=== PATIENT | female | born 1945 | race Caucasian/White ===

== ENCOUNTER → 2019-06-20 13:22 | Outpatient (CLI) | payer MEDICARE, SELFPAY ==
--- NOTE | ~2019-06-20 | MR_ITS ---
EXAMINATION: MR lumbar spine wo/w con EXAM DATE: 06/20/2019 14:58 INDICATION: Low back pain, right leg pain. Lumbar radiculopathy. TECHNIQUE: Multi-sequential, multiplanar MR images of the lumbar spine were obtained without contrast . Sagittal T1, T2, T2 fat saturation images. Axial T2 weighted images. Axial T1 weighted sequence. Patient was then injected with 10 mL Multihance intravenous contrast and reimaged. Postcontrast axi al and sagittal T1-weighted fat saturation sequences were obtained. Comparison is made to prior exami nation from 05/02/2015. FINDINGS: There is been interval posterior and interbody fusion L4-5. The vertebral bodies are aligne d in the AP dimension. Mild disc disease L2-3 and L3-4. The conus medullaris terminates at the L1/2 l evel and has normal signal intensity and morphology. There are no suspicious marrow signal abnormali ties. There are no areas of abnormal enhancement on the post contrast images. There is severe right r enal atrophy and hypertrophied appearing left kidney again noted. Level by level evaluation: T12-L1: Disc does not extend beyond the endplate margin. Facet arthropathy: Minimal. Neural foraminal stenosis: No stenosis. Central canal stenosis: No stenosis. L1-L2: Disc does not extend beyond the endplate margin. Facet arthropathy: Mild. Neural foraminal stenosis: No stenosis. Central canal stenosis: No stenosis. L2-L3: There is a mild diffuse disc bulge. Facet arthropathy: Mild. Neural foraminal stenosis: Mild bilateral. Central canal stenosis: No stenosis. L3-L4: There is a mild to moderate diffuse disc bulge. Facet arthropathy: Moderate left, mild to moderate right. Ligamentum flavum enlargement . Neural foraminal stenosis: Mild. Central canal stenosis: No stenosis. L4-L5: This level is fused. Facet arthropathy: None. Neural foraminal stenosis: Moderate right, mild to moderate left. Central canal stenosis: No stenosis. L5-S1: Disc does not extend beyond the endplate margin. Facet arthropathy: Mild. Neural foraminal stenosis: No stenosis. Central canal stenosis: No stenosis. IMPRESSION: 1. Interval L4-5 lumbar fusion. 2. Mild progression lumbar spondylosis compared to 2016. Reviewed, dictated and finalized at location B. 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
[2019-06-20 14:29] LABS: Blood Urea Nitrogen 14 mg/dL (8-26); Estimated Glomerular Filt Rate > 60
== END ==
PROVIDERS: PCP Physician Assistant; Visit Provider Anesthesiology
DX: M47.26 Other spondylosis with radiculopathy, lumbar region (principal)
CPT/HCPCS: 72158; A9577

== ENCOUNTER 2020-02-06 09:37 | Outpatient (CLI) | payer MEDICARE, SELFPAY ==
--- NOTE | ~2020-02-06 | MM_ITS ---
EXAMINATION: MM screening ramiro BI w kailee HISTORY: Screening TECHNIQUE: Craniocaudal and mediolateral oblique 3-D tomosynthesis images were obtained and synthetic 2-D images were generated. CAD analysis was submitted and interpreted. COMPARISON: Comparison to multiple prior studies sequentially, with oldest reviewed study dated 07/2017. BREAST PARENCHYMAL COMPOSITION: The breasts are heterogeneously dense, which may obscure small masses . FINDINGS: There is no evidence of suspicious mass, calcification, or architectural distortion to sugg est malignancy in either breast. There has been no suspicious interval change. IMPRESSION: 1. No mammographic evidence of malignancy. 2. Recommend routine screening mammography in one year. BI-RADS Category 1: Negative Reviewed, dictated and finalized at location A.
== END 2020-02-06 09:38 | disposition home or self-care (01) ==
PROVIDERS: PCP Physician Assistant; Visit Provider Physician Assistant
DX: Z12.31 Encounter for screening mammogram for malignant neoplasm of breast (principal)
CPT/HCPCS: 77063; 77067

== ENCOUNTER 2021-04-08 09:40 | Outpatient (CLI) | payer MEDICARE, SELFPAY ==
--- NOTE | ~2021-04-08 | MM_ITS ---
EXAMINATION: MM screening ramiro BI w kailee HISTORY: Screening mammogram TECHNIQUE: Craniocaudal and mediolateral oblique 3-D tomosynthesis images were obtained and synthetic 2-D images were generated. CAD analysis was submitted and interpreted. COMPARISON: 02/06/2020 bilateral screening mammogram 01/05/2019 diagnostic right mammogram 07/10/2018 left stereotactic breast biopsy 06/27/2018 bilateral diagnostic mammography BREAST PARENCHYMAL COMPOSITION: The breasts are heterogeneously dense, which may obscure small masses . FINDINGS: Multiple bilateral benign calcifications are again noted. There is no evidence of suspiciou s mass, calcification, or architectural distortion to suggest malignancy in either breast. There has been no suspicious interval change. IMPRESSION: 1. No mammographic evidence of malignancy. 2. Recommend routine screening mammography in one year. BI-RADS Category 2: Benign finding(s). Reviewed, dictated and finalized at location A. ENTER ROUGH
== END 2021-04-08 09:41 | disposition home or self-care (01) ==
LOC: ANHIMG 09:43
PROVIDERS: PCP Physician Assistant; Visit Provider Physician Assistant
DX: Z12.31 Encounter for screening mammogram for malignant neoplasm of breast (principal)
CPT/HCPCS: 77063; 77067

== ENCOUNTER → 2021-11-03 08:09 | Outpatient (CLI) | payer MEDICARE, SELFPAY ==
--- NOTE | ~2021-11-03 | CT_ITS ---
EXAMINATION: CT abdomen wo con DATE: 11/03/2021 08:46 INDICATION: Evaluate for hernia. TECHNIQUE: Computed tomography (CT) of the abdomen and pelvis was performed without intravenous contr ast. The dose-length product was 177.67 mGy-cm. Automated exposure control and iterative reconstructi on technique were employed. COMPARISON: CT dated 08/28/2014. FINDINGS: There is right middle lobe atelectasis. Heart size normal. Small hiatal hernia. No signific ant pleural or pericardial effusion. There is a small fat-containing supraumbilical hernia. Severely atrophic right kidney with hypertrophy of the left kidney. No hydronephrosis. There are gallstones. T he liver, spleen, pancreas, adrenal glands are unremarkable. Nonobstructive bowel gas pattern. There is posterior spinal fusion at the lower lumbar spine. No acute osseous abnormality. There are surgica l changes in the small bowel of the left mid abdomen. IMPRESSION: 1. Small fat-containing supraumbilical ventral hernia. 2: Cholelithiasis. 3: Severe right renal atrophy. Reviewed, dictated and finalized at location A.
== END ==
PROVIDERS: PCP Internal Medicine; Visit Provider Surgery
DX: K43.2 Incisional hernia without obstruction or gangrene (principal); K80.20 Calculus of gallbladder without cholecystitis without obstruction; K42.9 Umbilical hernia without obstruction or gangrene; N26.1 Atrophy of kidney (terminal)
CPT/HCPCS: 74150

== ENCOUNTER 2021-11-19 10:55 | Outpatient (CLI) | payer MEDICARE, SELFPAY ==
--- NOTE | 2021-11-19 10:58 | ECG_ITS ---
Measurements Intervals [place] Rate: 72 P: 64 ME: 138 QRS: 56 QRSD: 74 T: 71 QT: 357 QTc: 391 Interpretive Statements SINUS RHYTHM DELAYED PRECORDIAL R/S TRANSITION BASELINE ARTIFACT- I, II, III, AVR, AVL, AVF, V3-V5 BORDERLINE ECG Electronically Signed On 11-19-2021 12:09:02 CDT by Regulo Reese D.O.
== END 2021-11-19 10:56 | disposition home or self-care (01) ==
PROVIDERS: PCP Physician Assistant; Visit Provider Surgery
DX: K43.2 Incisional hernia without obstruction or gangrene (principal); I10 Essential (primary) hypertension; Z01.818 Encounter for other preprocedural examination; R94.31 Abnormal electrocardiogram [ECG] [EKG]
CPT/HCPCS: 36415; 86850; 86900; 86901; 93005

== ENCOUNTER 2021-11-23 00:27 | Day surgery (SDC) | payer MEDICARE, SELFPAY ==
[2021-11-19 08:47] VITALS: BMI 22.6
--- NOTE | 2021-11-19 09:17 | PC.NURSE ---
Report to the Outpatient Waiting Room, entrance under the green pavilion located off [facility], at time _0600_ on date _11/23/21_. OR Time: _0730_. - You and your visitor will be asked a series of questions to screen for COVID 19 for your protection. - Only one visitor is allowed at this time. - The patient visitor is requested to leave or wait in car when not with patient. - A mask is required within the hospital. Patients may have clear liquids (water, carbonated beverages, clear teas, apple juice) until 3 hours prior to surgery (0430 AM) with a maximum of 20 ounces. - No food from midnight until time of surgery Take the following medications with a SIP of water the morning of surgery: __AMLODIPINE, LEVOTHYROXINE, & ALPRAZOLAM IF NEEDED__ Medications to discontinue per ANESTHESIA - _VITAMINS AND SUPPLEMENTS 3 DAYS PRIOR TO SURGERY, Date to take last dose 06/22/21_ Please no make-up, nail danish, hairspray, perfume, deodorant, or body powder the day of surgery. No jewelry (including any body piercings) or valuables the day of surgery, leave them at home. Please take a shower or bath the night before, or the morning of, surgery with an antibacterial soap. Wear comfortable, loose fitting clothing. - Jewelry must be removed prior to entering the operating room. Rings and piercings that are not removed may be cut off. - The hospital will not accept responsibility for valuables. - Please leave all valuables, including medications, at home the day of surgery. If you are going home after surgery, a licensed minibus driver must drive you home. - NO public transportation without another adult. - We recommend that an adult stay with you for 24 hours following discharge. - We also recommend that you do not drive, make important decision, drink alcoholic beverages, or take any drugs that were not prescribed by your health care provider for at least 24 hours after your discharge time. Follow any additional instructions given to you from your surgeon. HIBICLENS SHOWER AM OF SURGERY If you or anyone in your household have experienced Covid symptoms in the past week, please notify your surgeon or the nurse liaison at the phone number below for possible testing. Telephone instructions given to ____PT and asked if any additional questions and then verbalized understanding. Patient advised to call surgeon office or pre surgery nurse liaison [phone] if any additional questions.
--- NOTE | 2021-11-20 14:29 | WPDANESEPPF ---
Anes - Initial Pre Proc Eval Procedure: Operation Date: 11/23/21 07:30 Proposed Procedures p Laparoscopic Incisional Hernia Repair Times Two, Davinci Assisted, Possible Open - Augustin Gomes DO Date/Time: 11/20/21 14:29 Surgeon: Augustin Gomes DO Pre Op Diagnosis: incisional hernia Patient Data Age: 76 Gender: F Height: 1.5 m Weight: 50.9 kg Allergies Allergy/AdvReac Type Severity Reaction Status Date / Time oxycodone AdvReac Severe Hallucinati Verified 11/23/21 06:15 on amoxicillin AdvReac Intermediate vomiting Verified 11/23/21 06:15 and diarrhea lovastatin AdvReac Unknown Joint Pain Verified 11/23/21 06:15 Sulfa (Sulfonamide AdvReac Unknown N/V Verified 11/23/21 06:15 Antibiotics) Home Medications Medication Instructions Recorded Confirmed Type folic acid 800 mcg tablet 0.8 mg PO DAILY 03/14/19 11/23/21 History glucosamine sulfate 500 mg tablet 1,000 mg PO QAM 03/14/19 11/23/21 History (Glucosamine) magnesium 200 mg tablet 200 mg PO QAM 03/14/19 11/23/21 History aspirin 81 mg tablet,delayed 81 mg PO HS 06/05/19 11/23/21 History release (Adult Low Dose Aspirin) cholecalciferol (vitamin D3) 50 50 mcg PO QAM 06/05/19 11/23/21 History mcg (2,000 unit) capsule alprazolam 0.5 mg tablet 0.5 mg PO TID PRN anxiety #90 tabs 09/30/21 11/19/21 Rx amlodipine 5 mg tablet 5 mg PO QAM 11/19/21 11/23/21 History levothyroxine 75 mcg tablet 75 mcg PO QAM 11/19/21 11/23/21 History potassium chloride 10 mEq 20 meq QAM 11/19/21 11/23/21 History tablet,extended release simvastatin 20 mg tablet 20 mg PO HS 11/19/21 11/23/21 History Patient hx anesthesia problems: none Family hx anesthesia problems: none Results Review: All pre-operative results and documents have been reviewed as part of the pre-operative evaluation. [facility] Past Medical History Medical History Anxiety COPD (chronic obstructive pulmonary disease) Elevated lipids Encounter for fitting and adjustment of pessary Endometriosis HTN (hypertension) Thyroid disease Surgical History Surgical History H/O abdominal hysterectomy H/O bladder repair surgery H/O colonoscopy 2012 H/O of rectopexy History of back surgery History of bilateral tubal ligation History of breast lump/mass excision S/P small bowel resection Family History Family History Mother Family history of arthritis Family history of heart disease in male family member before age 55 Family history of malignant neoplasm Patient's mother is Father Family history of diabetes mellitus in first degree relative Family history of emphysema Patient's father is Diabetes mellitus Grandparent Family history of coronary artery disease Sibling Family history of heart disease in male family member before age 55 Patient's sister is Carcinoma of colon Social History Social History Smoking packs per day: 0.5 Smoking cigarettes per day: 10.0 Years smoked: 40 Smoking pack-years: 20.00 Smoking status: Former smoker Tobacco type: cigarettes Second hand tobacco smoke exposure: No Smoking end date: 04/25/06 Alcohol intake: never Substance use: never Substance use type: does not use Living arrangements: alone Spiritual care concerns: No Anes - Eval Final PreProcedure Day of Procedure 11/20/21 14:29 Patient weight: normal Heart: regular rate and rhythm Lungs: clear to auscultation and normal air movement Airway: Mallampati scale class II Neurological: alert and oriented Last oral intake: >/= 8 hours ASA classification: III Emergent: no Anesthetic plan: proceed Anesthesia type and monitoring: general GIVS Results Review: All pre-operative results and do
[2021-11-23] VITALS (9 sets, daily range): BP systolic 115–179; BP diastolic 53–68; PULSE 79–89; RESP 12–16; TEMP 36.6; O2SAT 94–100
[2021-11-23] MEDS: ACETAMINOPHEN 500 MG TABLET 1000 MG PO (06:42)
[2021-11-23] MEDS: KETOROLAC 15 MG/ML VIAL (*BKC) IV PUSH (06:54)
[2021-11-23] MEDS: LACTATED RINGERS 1,000 ML 30 ML IV CONT ×2 (06:54→10:40)
--- NOTE | 2021-11-23 07:10 | P.HPUP_ITS ---
History and Physical Update Update Date/Time: 11/23/21 07:10 History and Physical has been reviewed, including an updated exam of the patient. There are NO changes in the patient's condition. I reviewed the operative reports and CT and have recommended proceeding with laparoscopic incis ional hernia repair with mesh x2, da Melody assisted. Risks, benefits, and alternatives have been discussed and questions answered. Patient agrees to proceed with procedure.
[2021-11-23] MEDS: ceFAZolin 2 GM/D5W 50 ML 2 GM/50 ML BAG IVPB (07:27)
--- NOTE | 2021-11-23 10:34 | W.PM.PROC2 ---
Procedure Note - Detailed Date of Procedure 11/23/21 Pre-op Diagnosis incisional hernia x2 Post-op Diagnosis Same Procedure Performed Laparoscopic Incisional Hernia Repair with Mesh x2, da Melody assisted Surgeon Augustin Gomes, Anesthesia General and Local (Exparel) Indications This is a 76-year-old woman who presented with 2 separate areas of a bulge and pain related to prior surgeries. She has a history laparoscopic rectopexy for prolapse and subsequently had a small bowel obstruction and required an exploratory laparotomy. She eventually developed a bulge at the superior edge of her midline abdominal scar and also developed a bulge had a right upper quadrant port site. The previous operative reports were reviewed and a CT of her abdomen was obtained. After reviewing the imaging and reports discussions were made with the patient about treatment options and decision was made to proceed with robotic assisted laparoscopic incisional hernia repair with mesh x2, possible open. Findings Laparoscopic repair of the 2 incisional hernias was performed. Upon entering the abdominal cavity laparoscopically, the left lateral abdomen appeared free of adhesions but there were significant adhesions involving omentum to the abdominal wall. These were taken down robotically with curved scissors the fascia was cleared around the upper abdomen where the hernias were. The patient was found to have a hernia in the upper midline measuring about 3 cm x 4 cm. She also had a right upper quadrant hernia measuring about 2 cm x 2 cm. The hernia defects were about 15 cm apart which made repairing this with 1 mesh too difficult. Therefore I chose to repair the right upper quadrant incisional hernia with an [address] mesh, and the upper midline incisional hernia was repaired using a 10 cm x [address] mesh. No specimens were obtained for pathology. As I was taking down the omental adhesions, there were some small bowel adhesions in the right lateral abdomen. There was 1 injury on the surface of the small bowel as I was taking down these adhesions, therefore I oversewed this area with 3-0 Vicryl seromuscular imbricating sutures. Description of Procedure Procedure as well as risks, benefits, and alternatives were discussed with the patient. Written consent was obtained and placed in chart prior to procedure. Patient was brought back to surgical suite. She was placed supine on operating table. Time-out was done to confirm patient and procedure. She was then intubated by the anesthesia department. A bump was placed under her left hip, and the bed was flexed slightly to extend the space between her costal margin and iliac crest. Her abdomen was prepped and draped in sterile fashion using chlorhexidine prep. A 5 millimeter incision was made in the left upper quadrant, and a 5 millimeter Optiview trocar was advanced through the abdominal layers under direct visualization. Once inside the abdominal cavity, carbon dioxide insufflation was used to create a pneumoperitoneum. Her abdomen was inspected. An 8 millimeter incision was made in the left lower quadrant, and an 8 millimeter robotic trocar was placed under direct visualization. Another 8 millimeter incision was made in the left lateral abdomen, and an 8 millimeter robotic trocar was placed under direct visualization. Exparel was infiltrated along the lateral abdominal wilkinson to perform a transversus abdominis plane block bilaterally. The 5 millimeter port was removed, the incision was extended to 12 millimeters, and a 12 millimeter air seal port was placed under direct visualization. A Toney-Sandoval cone was also used to place an 0-Vicryl simple interrupted suture at this trocar site. The robotic arms were brought up to the patient's bedside and secured to the ports. The camera and instruments were inserted, and I then moved over to the robotic console and took control of the camera and instruments.
--- NOTE | 2021-11-23 10:59 | SUR.PHASEI ---
1059- oral airway removed
[2021-11-23] MEDS: ONDANSETRON INJ 4 MG/2 ML VIAL IV PUSH (12:10)
[2021-11-23] MEDS: traMADol HCL (*CRX) 50 MG TABLET PO (12:19)
== END 2021-11-23 13:05 | disposition home or self-care (01) ==
PROVIDERS: PCP Physician Assistant; Visit Provider Surgery
PROC: (CPT 49654; principal; 2021-11-23 07:30)
DX: K43.2 Incisional hernia without obstruction or gangrene (principal); K91.72 Accidental puncture and laceration of a digestive system organ or structure during other procedure; Y65.8 Other specified misadventures during surgical and medical care; F41.9 Anxiety disorder, unspecified; J44.9 Chronic obstructive pulmonary disease, unspecified; N80.9 Endometriosis, unspecified; I10 Essential (primary) hypertension; Z87.891 Personal history of nicotine dependence; Z79.82 Long term (current) use of aspirin; E03.9 Hypothyroidism, unspecified
CPT/HCPCS: 49654; 44238; S2900; A9270; C1781; C9290; J0690; J1100; J1885; J2405; J2704; J3010; J7030; J7120

== ENCOUNTER → 2022-07-07 14:49 | Outpatient (CLI) | payer MEDICARE, SELFPAY ==
--- NOTE | ~2022-07-07 | MM_ITS ---
EXAMINATION: MM screening armiro BI w kailee HISTORY: Screening mammogram TECHNIQUE: Craniocaudal and mediolateral oblique 3-D tomosynthesis images were obtained and synthetic 2-D images were generated. CAD analysis was submitted and interpreted. COMPARISON: 04/10/2021, 02/06/2020 bilateral screening mammogram examinations BREAST PARENCHYMAL COMPOSITION: The breasts are heterogeneously dense, which may obscure small masses . FINDINGS: Multiple bilateral benign calcifications. There is no evidence of suspicious mass, calcific ation, or architectural distortion to suggest malignancy in either breast. There has been no suspicio us interval change. IMPRESSION: 1. No mammographic evidence of malignancy. 2. Recommend routine screening mammography in one year. BI-RADS Category 2: Benign finding(s). Reviewed, dictated and finalized at location A.
== END ==
PROVIDERS: PCP Physician Assistant; Visit Provider Physician Assistant
DX: Z12.31 Encounter for screening mammogram for malignant neoplasm of breast (principal)
CPT/HCPCS: 77063; 77067

== ENCOUNTER 2022-11-09 00:32 | Day surgery (SDC) | payer OTHER, SELFPAY ==
[2022-10-29 13:41] VITALS: BMI 25.1
[2022-11-09 09:32] VITALS: BP 137/68; PULSE 76; RESP 16; TEMP 36.2; O2SAT 97
[2022-11-09] MEDS: LACTATED RINGERS 1,000 ML 150 ML IV CONT (09:49)
--- NOTE | 2022-11-09 09:56 | PM.HPGS ---
History of Present Illness History of Present Illness Consent: Risks, benefits, and alternatives have been discussed and questions answered. Patient agrees to proceed with procedure. Chief complaint: neoplasm screening Narrative: Carolee Fitzpatrick is a 77 year old female Presents for screening colonoscopy. Previous colonoscopy 2011 was performed because of ischemic colitis. Patient has subsequently healed from this her bowel habits have returned to their baseline. Patient reports repair of prolapse 2 years ago. She did require open surgery and a small-bowel resection. She apparently at some point had a bladder repair. She has had several hernia is repaired. Patient states bowel habits are currently back to baseline. She does use milk of magnesia to control constipation. She denies any bleeding. Screening follow-up colonoscopy advised at this time. Family history is noncontributory. Review of Systems Review of Systems: Review of systems noncontributory. [facility] Past Medical History Medical History (Updated 11/09/22 @ 09:57 by Keith Rodriguez MD) Anxiety COPD (chronic obstructive pulmonary disease) Elevated lipids Encounter for fitting and adjustment of pessary Endometriosis HTN (hypertension) Incisional hernia Rectal prolapse Thyroid disease Surgical History Surgical History H/O abdominal hysterectomy H/O bladder repair surgery H/O colonoscopy 2012 H/O of rectopexy History of back surgery History of bilateral tubal ligation History of breast lump/mass excision History of incisional hernia repair s/p f/u incisional hernia repair x2, Da Melody assisted on 11/23. S/P small bowel resection Family History Family History Mother Family history of arthritis Family history of heart disease in male family member before age 55 Family history of malignant neoplasm Patient's mother is Father Family history of diabetes mellitus in first degree relative Family history of emphysema Patient's father is Diabetes mellitus Grandparent Family history of coronary artery disease Sibling Family history of heart disease in male family member before age 55 Patient's sister is Carcinoma of colon Social History Social History Smoking packs per day: 0.5 Smoking cigarettes per day: 10.0 Years smoked: 40 Smoking pack-years: 20.00 Smoking status: Never smoker Tobacco type: cigarettes Second hand tobacco smoke exposure: No Smoking end date: 04/25/06 Alcohol intake: never Substance use: never Substance use type: does not use Lack of Transportation: No Lack of Food: Never True Current Housing: I Have Housing Concerned About Future Housing: No Difficulty Paying Gas/Electric Bills: No Difficulty Paying for Meds: No Currently Unemployed: No Education: High School Diploma/GED Difficulty w/ Childcare or Family Care: No Living arrangements: alone Spiritual care concerns: No Meds Home Medications and Allergies Home Medications Medication Instructions Recorded Confirmed Type folic acid 800 mcg tablet 0.8 mg PO DAILY 03/14/19 10/29/22 History glucosamine sulfate 500 mg tablet 1,000 mg PO QAM 03/14/19 10/29/22 History (Glucosamine) magnesium 200 mg tablet 400 mg PO QAM 03/14/19 10/29/22 History aspirin 81 mg tablet,delayed 81 mg PO HS 06/05/19 10/29/22 History release (Adult Low Dose Aspirin) cholecalciferol (vitamin D3) 50 50 mcg PO QAM 06/05/19 10/29/22 History mcg (2,000 unit) capsule [id number]-bqaublixu-jivudrap 3.5 1 drp EACH EYE Q6H #5 mL 02/12/22 10/29/22 Rx mg/mL-10,000 unit/mL-0.1% eye drops levothyroxine 75 mcg tablet See Rx Instructions .Route 06/23/22 10/29/22 Rx .COMPLEX #90 tabs potassium chloride 10 mEq 20 meq PO QAM #180 tabs 07/21/22 10/29/22
--- NOTE | 2022-11-09 10:26 | WPDANESEPPF ---
Anes - Initial Pre Proc Eval Procedure: Operation Date: 11/09/22 10:30 Proposed Procedures p Screening Colonoscopy - Keith Rodriguez MD Date/Time: 11/09/22 10:26 Surgeon: Keith Rodriguez MD Pre Op Diagnosis: neoplasm screening Patient Data Age: 77 Gender: F Height: 1.47 m Weight: 52.8 kg Last Vital Signs Temp 97.2 F L 11/09/22 09:32 Pulse 76 11/09/22 09:32 Resp 16 11/09/22 09:32 BP 137/68 11/09/22 09:32 Pulse Ox 97 11/09/22 09:32 O2 Del Method Room Air 11/09/22 09:32 Allergies Allergy/AdvReac Type Severity Reaction Status Date / Time oxycodone AdvReac Severe Hallucinati Verified 11/09/22 09:31 on amoxicillin AdvReac Intermediate vomiting Verified 11/09/22 09:31 and diarrhea lovastatin AdvReac Unknown Joint Pain Verified 11/09/22 09:31 Sulfa (Sulfonamide AdvReac Unknown N/V Verified 11/09/22 09:31 Antibiotics) Home Medications Medication Instructions Recorded Confirmed Type folic acid 800 mcg tablet 0.8 mg PO DAILY 03/14/19 10/29/22 History glucosamine sulfate 500 mg tablet 1,000 mg PO QAM 03/14/19 10/29/22 History (Glucosamine) magnesium 200 mg tablet 400 mg PO QAM 03/14/19 10/29/22 History aspirin 81 mg tablet,delayed 81 mg PO HS 06/05/19 10/29/22 History release (Adult Low Dose Aspirin) cholecalciferol (vitamin D3) 50 50 mcg PO QAM 06/05/19 10/29/22 History mcg (2,000 unit) capsule [id number] 3.5 1 drp EACH EYE Q6H #5 mL 02/12/22 10/29/22 Rx mg/mL-10,000 unit/mL-0.1% eye drops levothyroxine 75 mcg tablet See Rx Instructions .Route 06/23/22 10/29/22 Rx .COMPLEX #90 tabs potassium chloride 10 mEq 20 meq PO QAM #180 tabs 07/21/22 10/29/22 Rx tablet,extended release alprazolam 0.5 mg tablet 0.5 mg PO TID PRN anxiety #90 tabs 09/24/22 10/29/22 Rx sodium,potassium,mag sulfates 17.5 See Rx Instructions PO .COMPLEX 10/08/22 Rx gram-3.13 gram-1.6 gram oral soln #354 mL (Suprep Bowel Prep Kit) amlodipine 5 mg tablet See Rx Instructions .Route 10/17/22 10/29/22 Rx .COMPLEX #90 tabs simvastatin 20 mg tablet See Rx Instructions .Route 10/17/22 10/29/22 Rx .COMPLEX #90 tabs Patient hx anesthesia problems: none Family hx anesthesia problems: none Results Review: All pre-operative results and documents have been reviewed as part of the pre-operative evaluation. [facility] Past Medical History Medical History (Updated 11/09/22 @ 09:57 by Keith Rodriguez MD) Anxiety COPD (chronic obstructive pulmonary disease) Elevated lipids Encounter for fitting and adjustment of pessary Endometriosis HTN (hypertension) Incisional hernia Rectal prolapse Thyroid disease Surgical History Surgical History H/O abdominal hysterectomy H/O bladder repair surgery H/O colonoscopy 2012 H/O of rectopexy History of back surgery History of bilateral tubal ligation History of breast lump/mass excision History of incisional hernia repair s/p f/u incisional hernia repair x2, Da Melody assisted on 11/23. S/P small bowel resection Family History Family History Mother Family history of arthritis Family history of heart disease in male family member before age 55 Family history of malignant neoplasm Patient's mother is Father Family history of diabetes mellitus in first degree relative Family history of emphysema Patient's father is Diabetes mellitus Grandparent Family history of coronary artery disease Sibling Family history of heart disease in male family member before age 55 Patient's sister is Carcinoma of colon Social History Social History Smoking packs per day: 0.5 Smoking cigarettes per day: 10.0 Years smoked: 40 Smoking pack-years: 20.00 Smoking status: Never smoker Tobacco type: cigarettes Second hand
[2022-11-09 10:58] VITALS: BP 99/50; PULSE 84; RESP 24; O2SAT 95
[2022-11-09 11:08] VITALS: BP 92/51; PULSE 81; RESP 17; O2SAT 95
[2022-11-09 11:18] VITALS: BP 92/51; PULSE 80; RESP 22; O2SAT 98
== END 2022-11-09 11:52 | disposition home or self-care (01) ==
PROVIDERS: PCP Physician Assistant; Visit Provider Internal Medicine Gastroenterology
PROC: 0DJD8ZZ Inspection of Lower Intestinal Tract, Via Natural or Artificial Opening Endoscopic (ICD-10-PCS; CPT 45378; principal; 2022-11-09 10:30)
DX: Z12.11 Encounter for screening for malignant neoplasm of colon (principal); D12.2 Benign neoplasm of ascending colon; D12.5 Benign neoplasm of sigmoid colon; K57.30 Diverticulosis of large intestine without perforation or abscess without bleeding; Z79.82 Long term (current) use of aspirin; E07.9 Disorder of thyroid, unspecified; I10 Essential (primary) hypertension; Z87.891 Personal history of nicotine dependence; K64.8 Other hemorrhoids
CPT/HCPCS: 45385; 88305; J2704; J7120

== ENCOUNTER 2023-07-27 10:32 | Outpatient (CLI) | payer OTHER, SELFPAY ==
--- NOTE | ~2023-07-27 | MM_ITS ---
EXAMINATION: MM screening ramiro BI w kailee HISTORY: Screening TECHNIQUE: Craniocaudal and mediolateral oblique 3-D tomosynthesis images were obtained and synthetic 2-D images were generated. CAD analysis was submitted and interpreted. COMPARISON: Comparison to multiple prior studies sequentially, with oldest reviewed study dated 03/25. BREAST PARENCHYMAL COMPOSITION: Dense: The breasts are heterogeneously dense, which may obscure small masses FINDINGS: There is no evidence of suspicious mass, calcification, or architectural distortion to sugg est malignancy in either breast. There has been no suspicious interval change. IMPRESSION: 1. No mammographic evidence of malignancy. 2. Recommend routine screening mammography in one year. BI-RADS Category 1: Negative Reviewed, dictated and finalized at location A.
== END 2023-07-27 10:33 ==
LOC: MICIMG 10:33
PROVIDERS: PCP Physician Assistant; Visit Provider Physician Assistant
DX: Z12.31 Encounter for screening mammogram for malignant neoplasm of breast (principal)
CPT/HCPCS: 77063; 77067

== ENCOUNTER 2023-10-13 09:50 | Outpatient (CLI) | payer OTHER, SELFPAY ==
--- NOTE | ~2023-10-13 | XR_ITS ---
EXAMINATION: [id number] DATE: 10/13/2023 10:15 INDICATION: Chest pain TECHNIQUE: PA view of the chest and 3 views of the right ribs were obtained. COMPARISON: None FINDINGS: No rib fractures identified. Couple calcified nodule left upper lung zone consistent with old granulo matous disease. Mild streaky atelectasis at the left lower lung zone. No other airspace opacities, pu lmonary edema, pleural effusion or pneumothorax. Cardiomediastinal silhouette is normal. Atherosclero tic aorta. Tiny likely left breast biopsy marker. Mild lumbar levocurvature with L4-L5 instrumented p osterior spinal fusion with bilateral vertical meliton and pedicle screw fixation. IMPRESSION: 1. No rib fracture. 2. Mild streaky atelectasis in the left lower lung zone. No other acute cardiopulmonary disease. Reviewed, dictated and finalized at location A. IMPRESSION: 1. No rib fracture. 2. Mild streaky atelectasis in the left lower lung zone. No other acute cardiop ulmonary disease.
--- NOTE | ~2023-10-13 | XR_ITS ---
XR abdomen/kub 1V 10/13/2023 10:15 Indication: Epigastric pain Procedure: KUB Comparison: CT dated 11/03/2021 Findings: Bowel gas pattern nonobstructive. Moderate colonic fecal loading. There are surgical fusion changes at L4-5. There are multiple round radiodensities of the abdomen, likely bowel content. There is a surgical anastomosis line in the left midabdomen. Impression: 1: Nonobstructive bowel gas pattern. Reviewed, dictated and finalized at location B. Impression: 1: Nonobstructive bowel gas pattern.
== END 2023-10-13 09:51 | disposition home or self-care (01) ==
LOC: ANHIMG 10:00
PROVIDERS: PCP Nurse Practitioner; Visit Provider Internal Medicine
DX: R10.13 Epigastric pain (principal); R07.89 Other chest pain
CPT/HCPCS: 71101; 74018

== ENCOUNTER 2023-12-05 09:31 | Outpatient (CLI) | payer OTHER, SELFPAY ==
--- NOTE | ~2023-12-05 | XR_ITS ---
EXAMINATION: XR shoulder RT min 2V DATE: 12/05/2023 09:48 INDICATION: Right scapular pain. Fall in September. TECHNIQUE: 4 views of right shoulder were obtained. COMPARISON: None. FINDINGS: Bone alignment is normal. No fracture. There is mild osteoarthritis of acromioclavicular jesus int. Glenohumeral joint is normal. IMPRESSION: 1. Mild osteoarthritis of acromioclavicular joint. Reviewed, dictated and finalized at location A.
== END 2023-12-05 09:32 | disposition home or self-care (01) ==
LOC: ANHIMG 09:32
PROVIDERS: PCP Nurse Practitioner; Visit Provider Internal Medicine
DX: M19.011 Primary osteoarthritis, right shoulder (principal); M25.511 Pain in right shoulder
CPT/HCPCS: 73030

== ENCOUNTER 2023-12-14 11:00 | Observation (INO) | payer OTHER, SELFPAY ==
[2023-12-14] VITALS (11 sets, daily range): BP systolic 100–160; BP diastolic 48–71; PULSE 87–100; RESP 12–29; TEMP 36.7–37.4; O2SAT 95–100; BMI 20.7
--- NOTE | ~2023-12-14 | CT_ITS ---
EXAMINATION: CT abdomen pelvis wo con DATE: 12/14/2023 13:15 INDICATION: Rib pain. Kidney stone. TECHNIQUE: Computed tomography (CT) of the abdomen and pelvis was performed without intravenous contr ast. Automated exposure control and iterative reconstruction technique were employed. The dose-length product was 328.39 mGy-cm. COMPARISON: CT abdomen 11/03/2021 FINDINGS: The visualized portions of the lung bases demonstrates mild atelectasis. There is a 17 mm n odule in left lower lobe, consistent with primary bronchogenic carcinoma. No pleural effusion. The he art size is normal. There are coronary artery calcifications. No pericardial effusion. There is a sma ll sliding hiatal hernia. There is a 12 mm hypodense mass in right hepatic lobe, consistent with meta static disease. There is a 13 mm liver mass adjacent to the falciform ligament that may be focal stea tosis or metastatic disease. The gallbladder, spleen, pancreas, and adrenal glands are normal. There is severe atrophy of right kidney. There is a 10 mm cyst in left kidney. There are no dilated loops o f bowel. There is calcified atherosclerosis of the aorta and many of the other arteries. There are n o pathologically enlarged lymph nodes. There is no free intraperitoneal fluid. There are scattered ly tic lesions of bone including in the proximal femora, left ilium, right ilium, left seventh rib, and sacrum. There are changes of anterior and posterior fusion procedures at L4-L5. There is lytic lesion in T10 with pathologic burst fracture. There is a chronic compression fracture of T9. IMPRESSION: 1. 17 mm left lower lobe pulmonary nodule, consistent with primary bronchogenic carcinoma. 2. Bone lesions and liver mass(es), consistent with metastatic disease. CT-guided biopsy of a lytic l esion of left ilium is recommended. Reviewed, dictated and finalized at location A. IMPRESSION: 1. 17 mm left lower lobe pulmonary nodule, consistent with primary bronchogenic carcinoma. 2. Bone lesions and liver mass(es), consistent with metastatic disease. CT-guid ed biopsy of a lytic lesion of left ilium is recommended.
--- NOTE | ~2023-12-14 | XR_ITS ---
EXAMINATION: XR chest 2V DATE: 12/14/2023 12:43 INDICATION: Weakness. TECHNIQUE: Frontal and lateral views of the chest were obtained. COMPARISON: Chest 2 views 10/13/2023, chest CT 05/02/2015, cervical spine radiographs 07/27/2017 FINDINGS: There is mild atelectasis in the lower lung zones. There is a chronic nodule in right upper lobe, likely benign. Calcified left lung nodules are consistent with old granulomatous disease. No p leural effusion or pneumothorax. The heart is normal. There are changes of posterior fusion procedure in lumbar spine. IMPRESSION: 1. Mild atelectasis in the lower lung zones. Reviewed, dictated and finalized at location A.
--- NOTE | ~2023-12-14 | CT_ITS ---
EXAMINATION: CT biopsy bone superficial DATE: 12/15/2023 08:49 INDICATION: Lytic lesion of left ilium. TECHNIQUE: The procedure including the risks, benefits, and alternatives was discussed with the patie nt. Risks discussed included bleeding and infection. The patient verbalized understanding of the risk s and agreed to proceed. The skin overlying the liver was prepped and draped in usual sterile fashio n. Anesthetic was administered with 1% lidocaine subcutaneously. A 16 gauge outer needle was advanc ed under CT guidance into the lytic lesion in left ilium. An 18 gauge core biopsy needle was then use d to obtain 4 core biopsy specimens. The mA was adjusted according to patient size. Iterative reconst ruction technique was employed. The dose-length product was 82.61 mGy-cm. The needle was removed and the entry site was cleaned and dressed. There were no immediate complications. FINDINGS: CT images demonstrate the outer needle tip in a lytic lesion in left ilium. IMPRESSION: 1. CT-guided core needle biopsy of a lytic lesion in left ilium. Reviewed, dictated and finalized at location A.
--- NOTE | ~2023-12-14 | MR_ITS ---
EXAMINATION: MR brain/brain stem wo/w con DATE: 12/15/2023 08:14 INDICATION: New headache. Lung cancer. TECHNIQUE: Magnetic resonance imaging (MRI) of the brain and brainstem was performed without and with 9 mL MultiHance intravenous contrast. COMPARISON: Head CT 12/14/2023 FINDINGS: There are scattered areas of nonspecific increased T2-weighted signal intensity in the cere bral white matter, which is within normal limits for the patient's age. There is no intracranial hemo rrhage, acute infarction, or abnormal intracranial mass lesion. The ventricles are normal in size. Th ere are likely changes of ocular lens replacement surgeries. The mastoid air cells are normal. The pa ranasal sinuses are clear. IMPRESSION: 1. Normal aging brain. Reviewed, dictated and finalized at location A. IMPRESSION: 1. Normal aging brain.
--- NOTE | ~2023-12-14 | CT_ITS ---
EXAMINATION: CT brain wo con DATE: 12/14/2023 16:47 INDICATION: Assess for bony metastases TECHNIQUE: Computed tomography (CT) of the head was performed without intravenous contrast. Sagittal and coronal reconstructions were performed. The mA was adjusted according to patient size. Iterative reconstruction technique was employed. The dose-length product was 605.33 mGy-cm. COMPARISON: None FINDINGS: No acute intracranial hemorrhage, acute infarction or abnormal extra axial fluid collection. There is mild scattered white matter hypoattenuation consistent with chronic small vessel ischemic disease. S ymmetric prominence of the sulci consistent with mild age-appropriate diffuse cerebral volume loss. V entricles are normal and symmetric. No mass/mass effect. Changes of bilateral intraocular lens replac ement. The orbits, paranasal sinuses and mastoid air cells are normal. No suspicious lytic or blastic bone lesions. Intracranial calcified cerebral atherosclerosis is noted. IMPRESSION: 1. Normal aging brain with mild diffuse volume loss and mild scattered white matter hypoattenuation c onsistent with chronic small vessel ischemic disease. Reviewed, dictated and finalized at location A. IMPRESSION: 1. Normal aging brain with mild diffuse volume loss and mild scattered white ma tter hypoattenuation consistent with chronic small vessel ischemic disease.
--- NOTE | ~2023-12-14 | XR_ITS ---
EXAMINATION: XR shoulder RT min 2V DATE: 12/14/2023 12:44 INDICATION: Right shoulder pain. TECHNIQUE: 4 views of right shoulder were obtained. COMPARISON: Right shoulder radiographs 12/05/2023 FINDINGS: Alignment is normal. No fracture. There is mild osteoarthritis of glenohumeral joint and ac romioclavicular joint. IMPRESSION: 1. Polyarticular osteoarthritis. Reviewed, dictated and finalized at location A.
--- NOTE | 2023-12-14 11:20 | ECG_ITS ---
Test Date: 2023-12-14 12:16:03 Measurements Intervals [place] Rate: 85 P: 67 [place]: 132 QRS: 43 QRSD: 78 T: 54 QT: 338 QTc: 404 Interpretive Statements SINUS RHYTHM No previous ECG available for comparison Electronically Signed On 12-15-2023 14:21:05 CDT by Maryam Veliz M.D.
[2023-12-14 11:32] LABS: Add Urine Microscopic? YES; Appearance Urine Clear (Clear); Bilirubin Urine Negative (Negative); Blood Urine Negative (Negative); Color Urine Yellow (Yellow); Glucose Urine UA Negative (Negative); Ketones Urine Trace mg/dL (Negative); Leukocyte Esterase Ur 1+ LEU/UL (Negative); Nitrate Urine Negative (Negative); Protein Urine Negative (Negative); RBC Urine 0-2 /hpf (0-2); Specific Grav Ur 1.016 (1.001-1.035); Squamous Epithelial Cell Urine Occasional /hpf (Few); Urobilinogen Urine 0.2 mg/dL (<2.0)
[2023-12-14 11:33] LABS: Bacteria Urine None Seen /hpf; Non Pathogenic Casts 0-2
[2023-12-14 11:53] LABS: Basophils Percent Auto 0.3 % (0.2-1.2); Eosinophils Absolute Auto 0.1 K/mm3 (0-0.3); Eosinophils Percent Auto 0.9 % (0-4.4); Hematocrit 39.2 % (37.0-47.0); Hemoglobin 12.7 g/dL (12.0-15.0); Immature Granulocyte Absolute 0.03 K/mm3 (0.00-0.031); Immature Granulocyte Percent A 0.4 % (0-0.5); Lymphocytes Absolute Auto 1.41 K/mm3 (0.9-3.2); Lymphocytes Percent Auto 20.7 % (18.3-44.2); Mean Corpuscular HGB Conc 32.4 g/dl (32-36); Mean Corpuscular Hemoglobin 30.2 pg (26-34); Mean Corpuscular Volume 93.3 fl (80-100); Mean Platelet Volume 11.2 fl (7.4-10.4); Monocytes Absolute Auto 0.7 K/mm3 (0.1-0.6); Monocytes Percent Auto 9.5 % (2.6-8.5); Neutrophils Absolute Auto 4.6 K/mm3 (1.3-6.7); Neutrophils Percent Auto 68.2 % (45.5-73.1); Platelet Count Result 211 k/mm3 (150-375); Red Cell Distribution Width 14.6 % (11.5-14.5); White Blood Count 6.8 K/mm3 (4.5-10.0)
[2023-12-14 12:09] LABS: Alanine Aminotransferase 14 U/L (6-35); Albumin Level 3.9 g/dL (3.5-5.1); Alkaline Phosphatase 139 U/L (38-126); Anion Gap 11 mmol/L (4-12); Aspartate Amino Transferase 27 U/L (14-36); Bilirubin,Total 0.7 mg/dL (0.2-1.3); Blood Urea Nitrogen 27 mg/dL (7-17); Calcium 12.6 mg/dL (8.4-10.2); Carbon Dioxide 31 mmol/L (22-30); Chloride 98 mmol/L (98-107); Estimated Glomerular Filt Rate 54; Glucose 105 mg/dL (65-110); Potassium 3.7 mmol/L (3.4-5.0); Sodium 140 mmol/L (137-145)
--- NOTE | 2023-12-14 12:11 | ED.WEAKNESS ---
HPI - Weakness General Chief complaint: Weakness Stated complaint: weak & fall Time Seen by Provider: 12/14/23 11:35 Source: patient and family Mode of arrival: EMS History of Present Illness HPI Narrative: Patient presents with progressive weakness and falls. The past few night she has been falling. Family has to assist as she is unable to get up. She denies that it is due to weakness or sensory deficits. She states her legs lock up/ freeze. In mid September she was walking the dog and she took a mis-step/jolting and thinks that this is attributed to that but realistically, she has just been declining. She is scheduled for an outpatient MRI tomorrow in [place] , family thinks it is for her spine but not certain. She has been incontinent of urine. Daughter thinks she may either have a UTI or it may be due to neurogenic bladder. She has been experiencing pain on her left back at the upper abdomen/lower chest. Also having issues with her bilateral shoulders though particularly her right. Denies history of malignancy but she had a breast lump removed years ago. No abdominal pain. No history of kidney stones. Family states she has been more confused lately. She has had increased weakness in her upper and lower extremities. Related Data Home Medications Medication Instructions Recorded Confirmed folic acid 800 mcg tablet 0.8 mg PO DAILY 03/14/19 12/14/23 magnesium 200 mg tablet 400 mg PO QHS 03/14/19 12/14/23 aspirin 81 mg tablet,delayed 81 mg PO HS 06/05/19 12/14/23 release (Adult Low Dose Aspirin) cholecalciferol (vitamin D3) 50 50 mcg PO QAM 06/05/19 12/14/23 mcg (2,000 unit) capsule amlodipine 5 mg tablet 5 mg PO DAILY 12/14/23 12/14/23 levothyroxine 75 mcg tablet 75 mcg PO DAILY 12/14/23 12/14/23 simvastatin 20 mg tablet 20 mg PO DAILY 12/14/23 12/14/23 Allergies Allergy/AdvReac Type Severity Reaction Status Date / Time oxycodone AdvReac Severe Hallucinati Verified 12/05/23 08:48 on amoxicillin AdvReac Intermediate vomiting Verified 12/05/23 08:48 and diarrhea lovastatin AdvReac Unknown Joint Pain Verified 12/05/23 08:48 Sulfa (Sulfonamide AdvReac Unknown N/V Verified 08/12/24 08:48 Antibiotics) [facility] Past Medical History Medical History Anxiety [place]-Walker grade 3 rectocele COPD (chronic obstructive pulmonary disease) Diabetes mellitus Elevated lipids Encounter for fitting and adjustment of pessary Endometriosis Fibroadenoma of left breast HTN (hypertension) Hyperlipidemia Hypothyroidism Incisional hernia Psoriasis Rectal prolapse Surgical History Surgical History H/O abdominal hysterectomy H/O bladder repair surgery H/O colonoscopy 2012 H/O of rectopexy History of back surgery History of bilateral tubal ligation History of breast lump/mass excision History of incisional hernia repair s/p f/u incisional hernia repair x2, Da Melody assisted on 11/23. S/P small bowel resection Family History Family History Mother Family history of arthritis Family history of heart disease in male family member before age 55 Family history of malignant neoplasm Patient's mother is Father Family history of diabetes mellitus in first degree relative Family history of emphysema Patient's father is Diabetes mellitus Grandparent Family history of coronary artery disease Sibling Family history of heart disease in male family member before age 55 Patient's sister is Carcinoma of colon Social History Social History Smoking packs per day: 0.5 Smoking cigarettes per day: 10.0 Years smoked: 40 Smoking pack-years: 20.00 Smoking status: Never smoker Second hand tobacco smoke exposure: No Alcohol intake: never Substance use: never Substance u
[2023-12-14 12:29] LABS: Creatine Kinase 35 U/L (30-135); Magnesium 2.3 mg/dL (1.6-2.3)
[2023-12-14] MEDS: SODIUM CHLORIDE 0.9% IV 1,000 ML 999 ML IV CONT ×2 (13:40→16:03)
[2023-12-14 14:06] LABS: Lipase 55 U/L (23-300); Phosphorus 3.8 mg/dL (2.5-4.5)
[2023-12-14 16:38] LABS: Calcium 11.7 mg/dL (8.4-10.2)
--- NOTE | 2023-12-14 18:41 | ADMGEN ---
This patient, Carolee Fitzpatrick, was admitted to 3 [facility] Surg Room 315-02. Patient/family oriented to hospital policies and general routines including ID bracelet, bed and alarms, visiting hours, pain management, procedures, bathroom and other care routines, personal items, smoking policy, room service/diet, and visiting hours. Information on how to activate the Rapid Response Team has been discussed. Patient/Family are encouraged to report perceived risks to care and to ask questions if they do not understand what they are told or what they should do.
[2023-12-14] MEDS: SODIUM CHLORIDE 0.9% IV 1,000 ML 200 ML IV CONT (18:57)
[2023-12-14] MEDS: ACETAMINOPHEN 325 MG TABLET 650 MG PO (21:05)
--- NOTE | 2023-12-14 21:18 | PM.IMHP ---
H&P: HPI History of Present Illness Date/Time: 12/14/23 21:18 [facility] Past Medical History Medical History Anxiety COPD (chronic obstructive pulmonary disease) Elevated lipids Encounter for fitting and adjustment of pessary Endometriosis HTN (hypertension) Incisional hernia Rectal prolapse Thyroid disease Surgical History Surgical History H/O abdominal hysterectomy H/O bladder repair surgery H/O colonoscopy 2012 H/O of rectopexy History of back surgery History of bilateral tubal ligation History of breast lump/mass excision History of incisional hernia repair s/p f/u incisional hernia repair x2, Da Melody assisted on 11/23. S/P small bowel resection Family History Family History Mother Family history of arthritis Family history of heart disease in male family member before age 55 Family history of malignant neoplasm Patient's mother is Father Family history of diabetes mellitus in first degree relative Family history of emphysema Patient's father is Diabetes mellitus Grandparent Family history of coronary artery disease Sibling Family history of heart disease in male family member before age 55 Patient's sister is Carcinoma of colon Social History Social History Smoking packs per day: 0.5 Smoking cigarettes per day: 10.0 Years smoked: 40 Smoking pack-years: 20.00 Smoking status: Never smoker Second hand tobacco smoke exposure: No Alcohol intake: never Substance use: never Substance use type: does not use Do You Feel Safe in your Home?: Yes Lack of Transportation: No Lack of Food: Never True Current Housing: I Have Housing Concerned About Future Housing: No Difficulty Paying Gas/Electric Bills: No Difficulty Paying for Meds: No Currently Unemployed: No Education: High School Diploma/GED Difficulty w/ Childcare or Family Care: No Living arrangements: alone Spiritual care concerns: No Meds Home Medications and Allergies Home Medications Medication Instructions Recorded Confirmed Type folic acid 800 mcg tablet 0.8 mg PO DAILY 03/14/19 12/14/23 History magnesium 200 mg tablet 400 mg PO QHS 03/14/19 12/14/23 History aspirin 81 mg tablet,delayed 81 mg PO HS 06/05/19 12/14/23 History release (Adult Low Dose Aspirin) cholecalciferol (vitamin D3) 50 50 mcg PO QAM 06/05/19 12/14/23 History mcg (2,000 unit) capsule metformin 500 mg tablet,extended 500 mg PO DAILY #90 tabs 09/20/23 12/14/23 Rx release 24 hr potassium chloride 10 mEq 20 meq PO QAM #180 tabs 10/20/23 12/14/23 Rx tablet,extended release alprazolam 0.5 mg tablet 0.5 mg PO TID PRN anxiety #90 tabs 11/04/23 12/14/23 Rx baclofen 10 mg tablet 10 mg PO BID PRN muscle spasm #60 12/07/23 12/14/23 Rx tabs amlodipine 5 mg tablet 5 mg PO DAILY 12/14/23 12/14/23 History levothyroxine 75 mcg tablet 75 mcg PO DAILY 12/14/23 12/14/23 History simvastatin 20 mg tablet 20 mg PO DAILY 12/14/23 12/14/23 History Allergies Allergy/AdvReac Type Severity Reaction Status Date / Time oxycodone AdvReac Severe Hallucinati Verified 12/05/23 08:48 on amoxicillin AdvReac Intermediate vomiting Verified 12/05/23 08:48 and diarrhea lovastatin AdvReac Unknown Joint Pain Verified 12/05/23 08:48 Sulfa (Sulfonamide AdvReac Unknown N/V Verified 12/05/23 08:48 Antibiotics) Vital Signs Vital Signs - 24 hr 12/14/23 11:01 12/14/23 12:01 12/14/23 12:53 Temperature 36.7 C Pulse Rate 100 88 91 Respiratory Rate 16 20 29 H Blood Pressure 100/54 L 144/57 H Pulse Oximetry 96 98 100 Oxygen Delivery Room Air 12/14/23 13:01 12/14/23 14:01 12/14/23 15:11 Temperature Pulse Rate 89 88 92 Respiratory Rate 27 H 20 18 Blood
--- NOTE | 2023-12-14 21:54 | PM.IMHP ---
H&P: HPI History of Present Illness Date/Time: 12/14/23 21:54 Chief Complaint: Progressive Weakness Narrative: 78 y/o F presents here with progressive weakness and fall with PMH of anxiety, COPD, endometriosis, hypertension, incisional hernia, rectal prolapse, and thyroid disease. The patient presents here from home via EMS for further evaluation of progressive weakness and fall. She reports most recent fall last night due to inability to right (initially thought it may have been her left) leg up to take a step up inside and then fell forward. Patient then fell onto her right shoulder. Denies head strike or loss of consciousness. Family was able to assist her back into bed. Currently reporting severe pain to right shoulder limiting her mobility. However today she was unable to get herself up from the bed due to weakness. Patient recently saw her PCP on 12/04 for ongoing pain in her right shoulder, new headache that is not like her usual, new urinary incontinence. Patient reports she has hx of migraines, however this headache is different than her usual. She reports it has been right sided, constant, dull, and present for the past week. Urinary incontinence that started on 12/03 or 12/04, has previous hx of bladder surgery (2010) had a sling put in. Denies fecal incontinence. Patient reports FH of cancer: stomach cancer (brother), metastatic breast cancer (sister, due to cancer), stomach cancer (sister). No personal hx of cancer. Reports recent unintentional weight loss - 118 -> 102 lbs in the last 2 months. Endorses night sweats for the past several years. Former smoker: 1-2 PPD 50 years. Patient difficult historian. Initial VS at presentation: 98.1? F, HR 100, RR 16, 154, and 96% on RA. ED workup showed: No leukocytosis, no anemia, creatinine 1.0 and GFR 54, calcium 12.6 (repeat 11.7), UA showed trace ketones, 1+ leuks, 6-10 WBC With occasional epithelial cells. CXR showed mild atelectasis in the lower lung zones. Shoulder XR (R) showed polyarticular osteoarthritis. CT of the abdomen/pelvis showed a 17 mm left lower lobe pulmonary nodule consistent with primary bronchogenic carcinoma and bone lesions and liver masses consistent with metastatic disease. Head CT showed a normal aging brain with mild diffuse volume loss and mild scattered white matter hypoattenuation consistent with chronic small-vessel ischemic disease. Review of Systems Review of Systems: All systems reviewed & are unremarkable except as noted in HPI and below PMFSH Past Medical History Medical History Anxiety [place]-Walker grade 3 rectocele COPD (chronic obstructive pulmonary disease) Diabetes mellitus Elevated lipids Encounter for fitting and adjustment of pessary Endometriosis Fibroadenoma of left breast HTN (hypertension) Hyperlipidemia Hypothyroidism Incisional hernia Psoriasis Rectal prolapse Surgical History Surgical History H/O abdominal hysterectomy H/O bladder repair surgery H/O colonoscopy 2012 H/O of rectopexy History of back surgery History of bilateral tubal ligation History of breast lump/mass excision History of incisional hernia repair s/p f/u incisional hernia repair x2, Da Melody assisted on 11/23. S/P small bowel resection Family History Family History Mother Family history of arthritis Family history of heart disease in male family member before age 55 Family history of malignant neoplasm Patient's mother is Father Family history of diabetes mellitus in first degree relative Family history of emphysema Patient's father is Diabetes mellitus Grandparent Family history of coronary artery disease Sibling Family history of heart disease in male family member before age 55 Patient's sister is Carcinoma of colon Social Hist
[2023-12-14] MEDS: ASPIRIN 81 MG ENTERIC TABLET PO (23:10)
[2023-12-14] MEDS: MAGNESIUM OXIDE 400 MG TABLET PO (23:10)
[2023-12-14] MEDS: LIDOCAINE 5% PATCH 1 PATCH TRANSDERM (23:10)
[2023-12-15] MEDS: SODIUM CHLORIDE 0.9% IV 1,000 ML 75 ML IV CONT ×2 (05:57→21:36)
[2023-12-15] MEDS: LEVOTHYROXINE SODIUM 75 MCG TABLET PO (05:58)
[2023-12-15 06:00] VITALS: BP 141/64; PULSE 89; RESP 20; TEMP 36.9; O2SAT 97
[2023-12-15 07:11] LABS: Basophils Percent Auto 0.8 % (0.2-1.2); Eosinophils Absolute Auto 0.1 K/mm3 (0-0.3); Eosinophils Percent Auto 2.1 % (0-4.4); Hematocrit 36.1 % (37.0-47.0); Hemoglobin 10.6 g/dL (12.0-15.0); Immature Granulocyte Absolute 0.02 K/mm3 (0.00-0.031); Immature Granulocyte Percent A 0.4 % (0-0.5); Lymphocytes Absolute Auto 1.01 K/mm3 (0.9-3.2); Lymphocytes Percent Auto 19.6 % (18.3-44.2); Mean Corpuscular HGB Conc 29.4 g/dl (32-36); Mean Corpuscular Hemoglobin 29.8 pg (26-34); Mean Corpuscular Volume 101.4 fl (80-100); Mean Platelet Volume 11.3 fl (7.4-10.4); Monocytes Absolute Auto 0.5 K/mm3 (0.1-0.6); Monocytes Percent Auto 9.9 % (2.6-8.5); Neutrophils Absolute Auto 3.5 K/mm3 (1.3-6.7); Neutrophils Percent Auto 67.2 % (45.5-73.1); Platelet Count Result 183 k/mm3 (150-375); Red Blood Count 3.56 M/mm3 (4.2-5.4); Red Cell Distribution Width 14.7 % (11.5-14.5); White Blood Count 5.1 K/mm3 (4.5-10.0)
[2023-12-15 07:35] LABS: Alanine Aminotransferase 13 U/L (6-35); Albumin Level 3.3 g/dL (3.5-5.1); Alkaline Phosphatase 98 U/L (38-126); Anion Gap 9 mmol/L (4-12); Anisocytosis 1+; Aspartate Amino Transferase 32 U/L (14-36); Bilirubin,Total 0.7 mg/dL (0.2-1.3); Blood Urea Nitrogen 19 mg/dL (7-17); Calcium 10.7 mg/dL (8.4-10.2); Carbon Dioxide 23 mmol/L (22-30); Chloride 105 mmol/L (98-107); Estimated Glomerular Filt Rate > 60; Glucose 82 mg/dL (65-110); Macrocytosis 1+ (NORMAL); Magnesium 2.2 mg/dL (1.6-2.3); Platelet Estimate Adequate (Adequate); Potassium 3.2 mmol/L (3.4-5.0); Schistocytes None Seen; Sodium 137 mmol/L (137-145)
[2023-12-15] MEDS: LIDOCAINE 5% PATCH 1 PATCH TRANSDERM ×2 (09:32→14:52)
[2023-12-15] MEDS: POTASSIUM CHLORIDE 20 MEQ ER TABLET PO (09:35)
[2023-12-15] MEDS: CHOLECALCIFEROL 1,000 UNITS TABLET 2000 UNITS PO (09:35)
[2023-12-15] MEDS: FOLIC ACID 0.4 MG TABLET 0.8 MG PO (09:35)
[2023-12-15] MEDS: SIMVASTATIN 20 MG TABLET PO (09:36)
[2023-12-15] MEDS: amLODIPine BESYLATE 5 MG TABLET PO (09:36)
[2023-12-15 09:47] LABS: Ionized Calcium 6.4 mg/dL (4.7-5.5)
[2023-12-15] MEDS: ACETAMINOPHEN 325 MG TABLET 650 MG PO ×2 (12:12→23:25)
[2023-12-15 12:48] VITALS: BMI 21.1
--- NOTE | 2023-12-15 13:26 | P.CDI_ITS ---
CDI Query Clarification Request BMI 21.1 Nutritional Diagnostic Statement: Please refer to the comprehensive nutrition assessment for further information. If you agree with diagnosis of Moderate protein calorie malnutrition related to reduced appetite and intake as evidenced by pt report of poor appetite for greater than 1 month, a significant weight loss of -14% x 2 months, and NFPE findings for moderate subcutaneous fat loss (cheeks) and moderate muscle wasting (hoahaoism, clavicles). Please specify severity if known: * Mild * Moderate * Severe * Other/Unknown <Brianna Drake RN - Last Filed: 12/15/23 13:27> Clarified Diagnosis Clarified Diagnosis: * Moderate malnutrition <Sandra Sheridan MD - Last Filed: 12/15/23 15:27>
[2023-12-15 14:00] VITALS: BP 119/59; PULSE 86; RESP 18; TEMP 36.5; O2SAT 98
--- NOTE | 2023-12-15 14:12 | PM.IMPN ---
Progress Note: A&P Assessment and Plan (1) Left lower lobe pulmonary nodule: Code(s): R91.1 - Solitary pulmonary nodule Status: Acute Assessment and Plan: - CT abd/pelvis: 1. 17 mm left lower lobe pulmonary nodule, consistent with primary bronchogenic carcinoma. 2. Bone lesions and liver mass(es), consistent with metastatic disease. CT-guided biopsy of a lytic lesion of left ilium is recommended. - oncology consulted, awaiting recs - (2) Bone lesion: Code(s): M89.9 - Disorder of bone, unspecified Status: Acute Assessment and Plan: - sp CT-guided biopsy of a lytic lesion of the left ilium ordered -lidoderm patch for pain - report will come back next week (3) Hypercalcemia: Code(s): E83.52 - Hypercalcemia Status: Acute Assessment and Plan: - Ca 12.6 -> 11.7 - parathyroid hormone and ionized calcium pending - same treatment as below - IV fluids: 2L bolus, maintenance fluid at 75 mL/hour - suspect elevation due to new malignancy (4) Multiple falls: Code(s): R29.6 - Repeated falls Status: Acute Assessment and Plan: - Head CT: 1. Normal aging brain with mild diffuse volume loss and mild scattered white matter hypoattenuation consistent with chronic small vessel ischemic disease. - MRI brain w/wo ordered given concern for metastasis to the brain due to progressive weakness /increase in number of falls - PT/OT eval and treat (5) Diabetes mellitus: Qualifiers: Diabetes mellitus type: type 2 Diabetes mellitus mcc insulin use: without extermination supervisor use Diabetes mellitus complication status: without complication Qualified Code(s): E11.9 - Type 2 diabetes mellitus without complications Code(s): E11.9 - Type 2 diabetes mellitus without complications Status: Acute Assessment and Plan: - hypoglycemia protocol - POC blood glucose ACHS - home medication: Hold metformin - correct regimen ordered - low dose TIDWM - A1C 7.1% on 08/23/2023 (6) HTN (hypertension): Qualifiers: Hypertension type: primary hypertension Qualified Code(s): I10 - Essential (primary) hypertension Code(s): I10 - Essential (primary) hypertension Status: Acute Assessment and Plan: - chronic, currently 144/58 - continue home medications: amlodipine 5 mg daily - monitor Subjective Date/time seen: 12/15/23 14:12 Interval history: Interval history: 78 y/o F presents here with progressive weakness and fall with PMH of anxiety, COPD, endometriosis, hypertension, incisional hernia, rectal prolapse, and thyroid disease. The patient presents here from home via EMS for further evaluation of progressive weakness and fall. She reports most recent fall last night due to inability to right (initially thought it may have been her left) leg up to take a step up inside and then fell forward. Patient then fell onto her right shoulder. Denies head strike or loss of consciousness. Family was able to assist her back into bed. Currently reporting severe pain to right shoulder limiting her mobility. However today she was unable to get herself up from the bed due to weakness. Patient recently saw her PCP on 12/04 for ongoing pain in her right shoulder, new headache that is not like her usual, new urinary incontinence. Patient reports she has hx of migraines, however this headache is different than her usual. She reports it has been right sided, constant, dull, and present for the past week. Urinary incontinence that started on 12/03 or 12/04, has previous hx of bladder surgery (2010) had a sling put in. 12/15/[address] abdo - 17 mm left lower lobe pulmonary nodule, consistent with primary bronchogenic carcinoma./ Bone lesions and liver mass(es), consistent with metastatic disease. sp CT-guided biopsy of a lytic lesion of left ilium is recommended. Today long discussion with daughter on the phone and pt at the b
--- NOTE | 2023-12-15 16:07 | PCPTNOTE ---
On 12/15/23, the student, [Michelle Bird], provided care and completed [facility] documentation on this patient. I have reviewed the student's documentation and agree with the findings.
[2023-12-15 20:00] VITALS: PULSE 90; RESP 16; O2SAT 96
[2023-12-15] MEDS: BACLOFEN 10 MG TABLET PO (20:32)
[2023-12-15] MEDS: MAGNESIUM OXIDE 400 MG TABLET PO (20:35)
[2023-12-15] MEDS: ASPIRIN 81 MG ENTERIC TABLET PO (20:35)
[2023-12-15 20:59] VITALS: BP 159/69; PULSE 90; RESP 16; TEMP 37; O2SAT 96
[2023-12-15] MEDS: ALPRAZolam (*CRX) 0.5 MG TABLET PO (23:21)
[2023-12-16] MEDS: ACETAMINOPHEN 325 MG TABLET 650 MG PO ×3 (05:02→17:44)
[2023-12-16] MEDS: LEVOTHYROXINE SODIUM 75 MCG TABLET PO (05:05)
[2023-12-16 06:00] VITALS: BP 116/60; PULSE 80; RESP 18; TEMP 36.3; O2SAT 97
[2023-12-16] MEDS: HYDROmorphone HCL INJ (*CRX) 1 MG/ML SYR IV PUSH (06:33)
[2023-12-16 07:15] LABS: Basophils Percent Auto 0.6 % (0.2-1.2); Eosinophils Absolute Auto 0.1 K/mm3 (0-0.3); Eosinophils Percent Auto 2.4 % (0-4.4); Hematocrit 33.7 % (37.0-47.0); Immature Granulocyte Absolute 0.02 K/mm3 (0.00-0.031); Immature Granulocyte Percent A 0.4 % (0-0.5); Lymphocytes Absolute Auto 1.12 K/mm3 (0.9-3.2); Lymphocytes Percent Auto 21.1 % (18.3-44.2); Mean Corpuscular HGB Conc 32.6 g/dl (32-36); Mean Corpuscular Hemoglobin 30.2 pg (26-34); Mean Corpuscular Volume 92.6 fl (80-100); Mean Platelet Volume 10.9 fl (7.4-10.4); Monocytes Absolute Auto 0.5 K/mm3 (0.1-0.6); Monocytes Percent Auto 10.2 % (2.6-8.5); Neutrophils Absolute Auto 3.5 K/mm3 (1.3-6.7); Neutrophils Percent Auto 65.3 % (45.5-73.1); Platelet Count Result 202 k/mm3 (150-375); Red Blood Count 3.64 M/mm3 (4.2-5.4); White Blood Count 5.3 K/mm3 (4.5-10.0)
[2023-12-16 07:32] LABS: Alanine Aminotransferase 15 U/L (6-35); Albumin Level 3.4 g/dL (3.5-5.1); Alkaline Phosphatase 118 U/L (38-126); Anion Gap 9 mmol/L (4-12); Aspartate Amino Transferase 33 U/L (14-36); Bilirubin,Total 0.7 mg/dL (0.2-1.3); Blood Urea Nitrogen 14 mg/dL (7-17); Calcium 10.7 mg/dL (8.4-10.2); Carbon Dioxide 29 mmol/L (22-30); Chloride 100 mmol/L (98-107); Estimated Glomerular Filt Rate > 60; Glucose 89 mg/dL (65-110); Magnesium 2.1 mg/dL (1.6-2.3); Sodium 138 mmol/L (137-145)
[2023-12-16] MEDS: FOLIC ACID 0.4 MG TABLET 0.8 MG PO (09:06)
[2023-12-16] MEDS: CHOLECALCIFEROL 1,000 UNITS TABLET 2000 UNITS PO (09:06)
[2023-12-16] MEDS: POTASSIUM CHLORIDE 20 MEQ ER TABLET 40 MEQ PO (09:06)
[2023-12-16] MEDS: amLODIPine BESYLATE 5 MG TABLET PO (09:06)
[2023-12-16] MEDS: LIDOCAINE 5% PATCH 1 PATCH TRANSDERM ×2 (09:07→09:09)
[2023-12-16] MEDS: SIMVASTATIN 20 MG TABLET PO (09:07)
--- NOTE | 2023-12-16 10:28 | PM.IMPN ---
Progress Note: A&P Assessment and Plan (1) Left lower lobe pulmonary nodule: Code(s): R91.1 - Solitary pulmonary nodule Status: Acute Assessment and Plan: - CT abd/pelvis: 1. 17 mm left lower lobe pulmonary nodule, consistent with primary bronchogenic carcinoma. 2. Bone lesions and liver mass(es), consistent with metastatic disease. CT-guided biopsy of a lytic lesion of left ilium is recommended. - oncology consulted, awaiting recs (2) Bone lesion: Code(s): M89.9 - Disorder of bone, unspecified Status: Acute Assessment and Plan: - sp CT-guided biopsy of a lytic lesion of the left ilium ordered -lidoderm patch for pain - report will come back next week (3) Hypercalcemia: Code(s): E83.52 - Hypercalcemia Status: Acute Assessment and Plan: - Ca 12.6 -> 11.7 - parathyroid hormone and ionized calcium pending - same treatment as below - IV fluids: 2L bolus, maintenance fluid at 75 mL/hour - suspect elevation due to new malignancy (4) Multiple falls: Code(s): R29.6 - Repeated falls Status: Acute Assessment and Plan: - Head CT: 1. Normal aging brain with mild diffuse volume loss and mild scattered white matter hypoattenuation consistent with chronic small vessel ischemic disease. - MRI brain w/wo ordered given concern for metastasis to the brain due to progressive weakness /increase in number of falls - PT/OT eval and treat (5) Diabetes mellitus: Qualifiers: Diabetes mellitus complication status: without complication Diabetes mellitus buttermaker continuous churn insulin use: without buttermaker continuous churn use Diabetes mellitus type: type 2 Qualified Code(s): E11.9 - Type 2 diabetes mellitus without complications Code(s): E11.9 - Type 2 diabetes mellitus without complications Status: Acute Assessment and Plan: - hypoglycemia protocol - POC blood glucose ACHS - home medication: Hold metformin - correct regimen ordered - low dose TIDWM - A1C 7.1% on 08/23/2023 (6) HTN (hypertension): Qualifiers: Hypertension type: primary hypertension Qualified Code(s): I10 - Essential (primary) hypertension Code(s): I10 - Essential (primary) hypertension Status: Acute Assessment and Plan: - chronic, currently 144/58 - continue home medications: amlodipine 5 mg daily - monitor Time Spent With Patient Time with patient: Greater than 35 minutes Subjective Date/time seen: 12/16/23 10:28 Interval history: Interval history: 78 y/o F presents here with progressive weakness and fall with PMH of anxiety, COPD, endometriosis, hypertension, incisional hernia, rectal prolapse, and thyroid disease. The patient presents here from home via EMS for further evaluation of progressive weakness and fall. She reports most recent fall last night due to inability to right (initially thought it may have been her left) leg up to take a step up inside and then fell forward. Patient then fell onto her right shoulder. Denies head strike or loss of consciousness. Family was able to assist her back into bed. Currently reporting severe pain to right shoulder limiting her mobility. However today she was unable to get herself up from the bed due to weakness. Patient recently saw her PCP on 12/04 for ongoing pain in her right shoulder, new headache that is not like her usual, new urinary incontinence. Patient reports she has hx of migraines, however this headache is different than her usual. She reports it has been right sided, constant, dull, and present for the past week. Urinary incontinence that started on 12/03 or 12/04, has previous hx of bladder surgery (2010) had a sling put in. 12/15/[address] abdo - 17 mm left lower lobe pulmonary nodule, consistent with primary bronchogenic carcinoma./ Bone lesions and liver mass(es), consistent with metastatic disease. sp CT-guided biopsy of a lytic lesion of left ilium is recommend
[2023-12-16] MEDS: BACLOFEN 10 MG TABLET PO ×2 (13:59→17:44)
[2023-12-16 14:00] VITALS: BP 133/62; PULSE 93; RESP 18; TEMP 37.7; O2SAT 95
--- NOTE | 2023-12-16 15:38 | PDONCCN ---
HPI - Date of Consult Date/Time: 12/16/23 15:38 Requesting Physician: Lala Beach MD Primary Care Provider: Reynold Adams APRN - Consult Narrative Reason for consult: Metastatic lung cancer Narrative: Carolee Fitzpatrick is a 78 year old female with history of COPD, hypertension and smoking quit 16 years ago came into the hospital status post fall along with progressive weakness. She has lost almost 15 lb weight in last couple of months. She has some dyspnea on exertion. Complain of bone pain and arthralgia. CT scan abdomen and pelvis showed 17 mm left lower lobe pulmonary nodule with bone lesions and liver masses. Patient has no previous history of malignancy. Patient had CT-guided biopsy of the left ilium bone lytic lesion performed 2 days ago and pathology is pending. She denies any other complaints. Review of Systems - Review of Systems All systems reviewed & are unremarkable except as noted in HPI and [facility] Medical History: Medical History (Last Reviewed 12/14/23 @ 22:55 by Afua Shanks APRN) Anxiety Mccaulley-Walker grade 3 rectocele COPD (chronic obstructive pulmonary disease) Diabetes mellitus Elevated lipids Encounter for fitting and adjustment of pessary Endometriosis Fibroadenoma of left breast HTN (hypertension) Hyperlipidemia Hypothyroidism Incisional hernia Psoriasis Rectal prolapse Surgical History: Surgical History (Last Reviewed 12/14/23 @ 22:55 by Afua Shanks APRN) H/O abdominal hysterectomy H/O bladder repair surgery H/O colonoscopy 2012 H/O of rectopexy History of back surgery History of bilateral tubal ligation History of breast lump/mass excision History of incisional hernia repair s/p f/u incisional hernia repair x2, Da Melody assisted on 11/23. S/P small bowel resection Family History: Family History (Last Reviewed 12/14/23 @ 22:55 by Afua Shanks APRN) Mother Family history of arthritis Family history of heart disease in male family member before age 55 Family history of malignant neoplasm Patient's mother is Father Family history of diabetes mellitus in first degree relative Family history of emphysema Patient's father is Diabetes mellitus Grandparent Family history of coronary artery disease Sibling Family history of heart disease in male family member before age 55 Patient's sister is Carcinoma of colon - Social History Social History: Social History (Last Reviewed 12/14/23 @ 22:55 by Afua Shanks APRN) Alcohol Use: Alcohol intake: never Substance Use: Substance use: never Substance use type: does not use Others: Spiritual care concerns: No Living Arrangements: Living arrangements: alone Smoking Status: Smoking status: Never smoker Second hand tobacco smoke exposure: No Smoking Pack-years: Smoking packs per day: 0.5 Smoking cigarettes per day: 10.0 Years smoked: 40 Smoking pack-years: 20.00 Social Determinants of Health: Do You Feel Safe in your Home?: Yes Has the Lack of Transportation Kept You From Medical Appointments or From Getting Medications?: No Within the Past 12 Months, Were You Worried Whether Your Food Would Run Out Before You Got Money to Buy More?: Never True What is Your Housing Situation Today?: I Have Housing Are You Worried That in the Next 2 Months, You May Not Have Your Own Housing to Live In?: No Do You Have Trouble Paying Your Heating Or Electricity Bill?: No Do You Have Trouble Paying For Medicines?: No Are You Currently Unemployed and Looking for Work?: No Highest Level of Education Completed: High School Diploma/GED Do You Have Trouble With Childcare or the Care of a Family Member?: No Exam - Vital Signs Vital Signs - 24 hr 12/15/23 20:59 12/15/23 20:00 12/16/23 06:00 Temperature 37.0 C 36.3 C L Pulse Rate 90 90 80 Respiratory Rate 16 16 18 Blood P
[2023-12-16 16:43] VITALS: TEMP 36.9
[2023-12-16 20:00] VITALS: PULSE 93; RESP 18; O2SAT 95
[2023-12-16] MEDS: MAGNESIUM OXIDE 400 MG TABLET PO (20:10)
[2023-12-16] MEDS: ASPIRIN 81 MG ENTERIC TABLET PO (20:10)
[2023-12-16 21:39] VITALS: BP 129/65; PULSE 91; RESP 16; TEMP 37.4; O2SAT 95
[2023-12-17] MEDS: SODIUM CHLORIDE 0.9% IV 1,000 ML 75 ML IV CONT (01:21)
[2023-12-17] MEDS: LEVOTHYROXINE SODIUM 75 MCG TABLET PO (05:37)
[2023-12-17 06:00] VITALS: BP 136/52; PULSE 83; RESP 14; TEMP 36.4; O2SAT 96
[2023-12-17] MEDS: FOLIC ACID 0.4 MG TABLET 0.8 MG PO (09:40)
[2023-12-17] MEDS: amLODIPine BESYLATE 5 MG TABLET PO (09:41)
[2023-12-17] MEDS: POTASSIUM CHLORIDE 20 MEQ ER TABLET 40 MEQ PO (09:41)
[2023-12-17] MEDS: SIMVASTATIN 20 MG TABLET PO (09:41)
[2023-12-17] MEDS: CHOLECALCIFEROL 1,000 UNITS TABLET 2000 UNITS PO (09:42)
[2023-12-17] MEDS: LIDOCAINE 5% PATCH 1 PATCH TRANSDERM ×2 (09:42)
[2023-12-17 10:37] LABS: Alanine Aminotransferase 19 U/L (6-35); Albumin Level 3.4 g/dL (3.5-5.1); Alkaline Phosphatase 127 U/L (38-126); Anion Gap 9 mmol/L (4-12); Aspartate Amino Transferase 37 U/L (14-36); Bilirubin,Total 0.8 mg/dL (0.2-1.3); Blood Urea Nitrogen 11 mg/dL (7-17); Calcium 10.8 mg/dL (8.4-10.2); Carbon Dioxide 27 mmol/L (22-30); Chloride 101 mmol/L (98-107); Estimated Glomerular Filt Rate > 60; Glucose 98 mg/dL (65-110); Magnesium 2.2 mg/dL (1.6-2.3); Potassium 3.4 mmol/L (3.4-5.0); Sodium 137 mmol/L (137-145)
[2023-12-17 10:43] LABS: Basophils Percent Auto 0.3 % (0.2-1.2); Eosinophils Absolute Auto 0.1 K/mm3 (0-0.3); Eosinophils Percent Auto 1.9 % (0-4.4); Hematocrit 33.7 % (37.0-47.0); Hemoglobin 11.1 g/dL (12.0-15.0); Immature Granulocyte Absolute 0.03 K/mm3 (0.00-0.031); Immature Granulocyte Percent A 0.5 % (0-0.5); Lymphocytes Absolute Auto 1.15 K/mm3 (0.9-3.2); Mean Corpuscular HGB Conc 32.9 g/dl (32-36); Mean Corpuscular Volume 91.1 fl (80-100); Mean Platelet Volume 11.1 fl (7.4-10.4); Monocytes Absolute Auto 0.5 K/mm3 (0.1-0.6); Monocytes Percent Auto 8.1 % (2.6-8.5); Neutrophils Absolute Auto 4.6 K/mm3 (1.3-6.7); Neutrophils Percent Auto 71.2 % (45.5-73.1); Platelet Count Result 201 k/mm3 (150-375); Red Cell Distribution Width 14.2 % (11.5-14.5); White Blood Count 6.4 K/mm3 (4.5-10.0)
[2023-12-17] MEDS: ACETAMINOPHEN 325 MG TABLET 650 MG PO ×3 (10:57→20:55)
[2023-12-17] MEDS: BACLOFEN 10 MG TABLET PO ×3 (10:57→20:55)
[2023-12-17 14:00] VITALS: BP 136/70; PULSE 86; RESP 16; TEMP 37.4; O2SAT 95
--- NOTE | 2023-12-17 14:29 | PM.IMPN ---
Progress Note: A&P Assessment and Plan (1) Left lower lobe pulmonary nodule: Code(s): R91.1 - Solitary pulmonary nodule Status: Acute Assessment and Plan: - CT abd/pelvis: 1. 17 mm left lower lobe pulmonary nodule, consistent with primary bronchogenic carcinoma. 2. Bone lesions and liver mass(es), consistent with metastatic disease. CT-guided biopsy of a lytic lesion of left ilium is recommended. - oncology consulted, awaiting recs (2) Bone lesion: Code(s): M89.9 - Disorder of bone, unspecified Status: Acute Assessment and Plan: - sp CT-guided biopsy of a lytic lesion of the left ilium ordered -lidoderm patch for pain - report will come back next week (3) Hypercalcemia: Code(s): E83.52 - Hypercalcemia Status: Acute Assessment and Plan: - Ca 12.6 -> 11.7 - parathyroid hormone and ionized calcium pending - same treatment as below - IV fluids: 2L bolus, maintenance fluid at 75 mL/hour - suspect elevation due to new malignancy (4) Multiple falls: Code(s): R29.6 - Repeated falls Status: Acute Assessment and Plan: - Head CT: 1. Normal aging brain with mild diffuse volume loss and mild scattered white matter hypoattenuation consistent with chronic small vessel ischemic disease. - MRI brain w/wo ordered given concern for metastasis to the brain due to progressive weakness /increase in number of falls - PT/OT eval and treat (5) Diabetes mellitus: Qualifiers: Diabetes mellitus type: type 2 Diabetes mellitus long term care administrator insulin use: without long term care administrator use Diabetes mellitus complication status: without complication Qualified Code(s): E11.9 - Type 2 diabetes mellitus without complications Code(s): E11.9 - Type 2 diabetes mellitus without complications Status: Acute Assessment and Plan: - hypoglycemia protocol - POC blood glucose ACHS - home medication: Hold metformin - correct regimen ordered - low dose TIDWM - A1C 7.1% on 08/23/2023 (6) HTN (hypertension): Qualifiers: Hypertension type: primary hypertension Qualified Code(s): I10 - Essential (primary) hypertension Code(s): I10 - Essential (primary) hypertension Status: Acute Assessment and Plan: - chronic, currently 144/58 - continue home medications: amlodipine 5 mg daily - monitor Plan continue hydration with IV for now as oral intake improves. Work with PT/OT. anticipate discharge home as pt doesnot want to go to rehab as soon as family makes arrangements. Time Spent With Patient Time with patient: Greater than 35 minutes Subjective Date/time seen: 12/17/23 14:29 Interval history: Interval history: 78 y/o F presents here with progressive weakness and fall with PMH of anxiety, COPD, endometriosis, hypertension, incisional hernia, rectal prolapse, and thyroid disease. The patient presents here from home via EMS for further evaluation of progressive weakness and fall. She reports most recent fall last night due to inability to right (initially thought it may have been her left) leg up to take a step up inside and then fell forward. Patient then fell onto her right shoulder. Denies head strike or loss of consciousness. Family was able to assist her back into bed. Currently reporting severe pain to right shoulder limiting her mobility. However today she was unable to get herself up from the bed due to weakness. Patient recently saw her PCP on 12/04 for ongoing pain in her right shoulder, new headache that is not like her usual, new urinary incontinence. Patient reports she has hx of migraines, however this headache is different than her usual. She reports it has been right sided, constant, dull, and present for the past week. Urinary incontinence that started on 12/03 or 12/04, has previous hx of bladder surgery (2010) had a sling put in. 12/15/[address] abdo - 17 mm left lower lobe pulmonary nodule,
--- NOTE | 2023-12-17 18:25 | PC.NURSE ---
On 12/17/23, the COLOR SPECIALIST, Georgiana Yeager, provided care and completed [facility] documentation on this patient. I have reviewed the COLOR SPECIALIST's documentation and agree with the findings.
[2023-12-17] MEDS: MAGNESIUM OXIDE 400 MG TABLET PO (20:58)
[2023-12-17] MEDS: ASPIRIN 81 MG ENTERIC TABLET PO (21:02)
[2023-12-17 22:00] VITALS: BP 165/60; PULSE 91; RESP 16; TEMP 37.2; O2SAT 97
[2023-12-18] MEDS: ACETAMINOPHEN 325 MG TABLET 650 MG PO ×3 (00:28→22:16)
[2023-12-18] MEDS: ALPRAZolam (*CRX) 0.5 MG TABLET PO ×2 (00:29→22:17)
[2023-12-18] MEDS: SODIUM CHLORIDE 0.9% IV 1,000 ML 75 ML IV CONT ×2 (01:45→20:39)
[2023-12-18] MEDS: LEVOTHYROXINE SODIUM 75 MCG TABLET PO (05:54)
[2023-12-18 06:00] VITALS: BP 170/63; PULSE 83; RESP 16; TEMP 36.9; O2SAT 98
[2023-12-18 06:35] LABS: Basophils Percent Auto 0.4 % (0.2-1.2); Eosinophils Absolute Auto 0.2 K/mm3 (0-0.3); Eosinophils Percent Auto 3.2 % (0-4.4); Hematocrit 38.7 % (37.0-47.0); Hemoglobin 12.2 g/dL (12.0-15.0); Immature Granulocyte Absolute 0.03 K/mm3 (0.00-0.031); Immature Granulocyte Percent A 0.6 % (0-0.5); Lymphocytes Absolute Auto 1.26 K/mm3 (0.9-3.2); Mean Corpuscular HGB Conc 31.5 g/dl (32-36); Mean Corpuscular Hemoglobin 29.8 pg (26-34); Mean Corpuscular Volume 94.6 fl (80-100); Monocytes Absolute Auto 0.5 K/mm3 (0.1-0.6); Monocytes Percent Auto 9.7 % (2.6-8.5); Neutrophils Absolute Auto 3.1 K/mm3 (1.3-6.7); Neutrophils Percent Auto 61.1 % (45.5-73.1); Platelet Count Result 226 k/mm3 (150-375); Red Blood Count 4.09 M/mm3 (4.2-5.4); Red Cell Distribution Width 14.6 % (11.5-14.5)
[2023-12-18 06:48] LABS: Alanine Aminotransferase 31 U/L (6-35); Albumin Level 3.7 g/dL (3.5-5.1); Alkaline Phosphatase 135 U/L (38-126); Anion Gap 7 mmol/L (4-12); Aspartate Amino Transferase 52 U/L (14-36); Bilirubin,Total 0.8 mg/dL (0.2-1.3); Blood Urea Nitrogen 10 mg/dL (7-17); Calcium 10.6 mg/dL (8.4-10.2); Carbon Dioxide 31 mmol/L (22-30); Chloride 100 mmol/L (98-107); Estimated Glomerular Filt Rate > 60; Glucose 103 mg/dL (65-110); Magnesium 2.4 mg/dL (1.6-2.3); Potassium 3.6 mmol/L (3.4-5.0); Sodium 138 mmol/L (137-145)
[2023-12-18] MEDS: POTASSIUM CHLORIDE 20 MEQ ER TABLET 40 MEQ PO (09:10)
[2023-12-18] MEDS: amLODIPine BESYLATE 5 MG TABLET PO (09:10)
[2023-12-18] MEDS: FOLIC ACID 0.4 MG TABLET 0.8 MG PO (09:10)
[2023-12-18] MEDS: CHOLECALCIFEROL 1,000 UNITS TABLET 2000 UNITS PO (09:10)
[2023-12-18] MEDS: LIDOCAINE 5% PATCH 1 PATCH TRANSDERM ×2 (09:11)
[2023-12-18] MEDS: SIMVASTATIN 20 MG TABLET PO (09:11)
--- NOTE | 2023-12-18 10:56 | PM.IMPN ---
Progress Note: A&P Assessment and Plan (1) Left lower lobe pulmonary nodule: Code(s): R91.1 - Solitary pulmonary nodule Status: Acute Assessment and Plan: - CT abd/pelvis: 1. 17 mm left lower lobe pulmonary nodule, consistent with primary bronchogenic carcinoma. 2. Bone lesions and liver mass(es), consistent with metastatic disease. CT-guided biopsy of a lytic lesion of left ilium is recommended. - oncology consulted- follow up outpt (2) Bone lesion: Code(s): M89.9 - Disorder of bone, unspecified Status: Acute Assessment and Plan: - sp CT-guided biopsy of a lytic lesion of the left ilium ordered -lidoderm patch for pain - report will come back next week - pain control (3) Hypercalcemia: Code(s): E83.52 - Hypercalcemia Status: Acute Assessment and Plan: - Ca 12.6 -> 11.7 - parathyroid hormone and ionized calcium pending - same treatment as below - IV fluids: 2L bolus, maintenance fluid at 75 mL/hour - suspect elevation due to new malignancy (4) Multiple falls: Code(s): R29.6 - Repeated falls Status: Acute Assessment and Plan: - Head CT: 1. Normal aging brain with mild diffuse volume loss and mild scattered white matter hypoattenuation consistent with chronic small vessel ischemic disease. - MRI brain w/wo ordered given concern for metastasis to the brain due to progressive weakness /increase in number of falls - PT/OT eval and treat - pt is insisting on home discharge but very weak. 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 insulin use: without retirement use Diabetes mellitus type: type 2 Qualified Code(s): E11.9 - Type 2 diabetes mellitus without complications Code(s): E11.9 - Type 2 diabetes mellitus without complications Status: Acute Assessment and Plan: - hypoglycemia protocol - POC blood glucose ACHS - home medication: Hold metformin - correct regimen ordered - low dose TIDWM - A1C 7.1% on 08/23/2023 (6) HTN (hypertension): Qualifiers: Hypertension type: primary hypertension Qualified Code(s): I10 - Essential (primary) hypertension Code(s): I10 - Essential (primary) hypertension Status: Acute Assessment and Plan: - chronic, currently 144/58 - continue home medications: amlodipine 5 mg daily - monitor Plan continue hydration with IV for now as oral intake improves. Work with PT/OT. anticipate discharge home as pt doesnot want to go to rehab as soon as family makes arrangements. Time Spent With Patient Time with patient: Greater than 35 minutes Subjective Date/time seen: 12/18/23 10:56 Interval history: Interval history: 78 y/o F presents here with progressive weakness and fall with PMH of anxiety, COPD, endometriosis, hypertension, incisional hernia, rectal prolapse, and thyroid disease. The patient presents here from home via EMS for further evaluation of progressive weakness and fall. She reports most recent fall last night due to inability to right (initially thought it may have been her left) leg up to take a step up inside and then fell forward. Patient then fell onto her right shoulder. Denies head strike or loss of consciousness. Family was able to assist her back into bed. Currently reporting severe pain to right shoulder limiting her mobility. However today she was unable to get herself up from the bed due to weakness. Patient recently saw her PCP on 12/04 for ongoing pain in her right shoulder, new headache that is not like her usual, new urinary incontinence. Patient reports she has hx of migraines, however this headache is different than her usual. She reports it has been right sided, constant, dull, and present for the past week. Urinary incontinence that s
--- NOTE | 2023-12-18 12:22 | PCPTNOTE ---
Attempted to see patient for Physical Therapy this date. Patient stated that she was having spasms, starting to have a headache, and was tired. Patient stated that she was going to have family in this afternoon to discuss what they need to do. RN notified.
[2023-12-18] MEDS: BACLOFEN 10 MG TABLET PO ×2 (12:49→20:42)
--- NOTE | 2023-12-18 13:42 | PCPTNOTE ---
Attempted to see patient for Physical Therapy this afternoon. Patient declined to participate in therapy. Patient stated that she just wanted to wait until they figure out what they are doing and where she is going. RN notified.
[2023-12-18 14:00] VITALS: BP 130/74; PULSE 79; RESP 16; TEMP 36.4; O2SAT 98
[2023-12-18 20:20] VITALS: PULSE 93; RESP 20; O2SAT 97
[2023-12-18] MEDS: ASPIRIN 81 MG ENTERIC TABLET PO (20:42)
[2023-12-18] MEDS: MAGNESIUM OXIDE 400 MG TABLET PO (20:42)
[2023-12-18 20:57] VITALS: BP 171/59; PULSE 93; RESP 20; TEMP 36.9; O2SAT 97
[2023-12-19] MEDS: SODIUM CHLORIDE 0.9% IV 1,000 ML 75 ML IV CONT ×2 (04:50→20:24)
[2023-12-19] MEDS: ACETAMINOPHEN 325 MG TABLET 650 MG PO ×2 (05:29→20:22)
[2023-12-19] MEDS: LEVOTHYROXINE SODIUM 75 MCG TABLET PO (05:30)
[2023-12-19 06:00] VITALS: BP 156/62; PULSE 86; RESP 18; TEMP 36.9; O2SAT 97
[2023-12-19 07:49] LABS: Basophils Percent Auto 0.6 % (0.2-1.2); Eosinophils Absolute Auto 0.2 K/mm3 (0-0.3); Hematocrit 33.4 % (37.0-47.0); Hemoglobin 10.6 g/dL (12.0-15.0); Immature Granulocyte Absolute 0.03 K/mm3 (0.00-0.031); Immature Granulocyte Percent A 0.6 % (0-0.5); Lymphocytes Absolute Auto 1.31 K/mm3 (0.9-3.2); Lymphocytes Percent Auto 24.6 % (18.3-44.2); Mean Corpuscular HGB Conc 31.7 g/dl (32-36); Mean Corpuscular Hemoglobin 29.8 pg (26-34); Mean Corpuscular Volume 93.8 fl (80-100); Mean Platelet Volume 11.3 fl (7.4-10.4); Monocytes Absolute Auto 0.5 K/mm3 (0.1-0.6); Monocytes Percent Auto 8.8 % (2.6-8.5); Neutrophils Absolute Auto 3.3 K/mm3 (1.3-6.7); Neutrophils Percent Auto 62.4 % (45.5-73.1); Platelet Count Result 197 k/mm3 (150-375); Red Blood Count 3.56 M/mm3 (4.2-5.4); Red Cell Distribution Width 14.8 % (11.5-14.5); White Blood Count 5.3 K/mm3 (4.5-10.0)
[2023-12-19 08:01] LABS: Alanine Aminotransferase 37 U/L (6-35); Albumin Level 3.2 g/dL (3.5-5.1); Alkaline Phosphatase 120 U/L (38-126); Anion Gap 9 mmol/L (4-12); Aspartate Amino Transferase 51 U/L (14-36); Bilirubin,Total 0.5 mg/dL (0.2-1.3); Blood Urea Nitrogen 11 mg/dL (7-17); Calcium 10.9 mg/dL (8.4-10.2); Carbon Dioxide 26 mmol/L (22-30); Chloride 103 mmol/L (98-107); Estimated Glomerular Filt Rate > 60; Glucose 161 mg/dL (65-110); Magnesium 2.3 mg/dL (1.6-2.3); Potassium 3.7 mmol/L (3.4-5.0); Sodium 138 mmol/L (137-145)
[2023-12-19] MEDS: LIDOCAINE 5% PATCH 1 PATCH TRANSDERM ×2 (09:48→09:49)
[2023-12-19] MEDS: amLODIPine BESYLATE 5 MG TABLET PO (09:48)
[2023-12-19] MEDS: CHOLECALCIFEROL 1,000 UNITS TABLET 2000 UNITS PO (09:48)
[2023-12-19] MEDS: FOLIC ACID 0.4 MG TABLET 0.8 MG PO (09:48)
[2023-12-19] MEDS: POTASSIUM CHLORIDE 20 MEQ ER TABLET 40 MEQ PO (09:48)
[2023-12-19] MEDS: SIMVASTATIN 20 MG TABLET PO (09:48)
--- NOTE | 2023-12-19 11:05 | PC.NURSE ---
Pt very agitated this morning. States she is in a hospital full of hospice music therapist, FBI agents, and kidnappers. Refuses to take medication because you are just trying to poison me and I'm not falling for it . She is suspicious that her family is giving her chemicals and it is causing her to decay in the bed. Re-orientation was attempted but unsuccessful. Also stated that we gave her the wrong pills yesterday when the computers were broken and that is why she is on the verge of dying. Hospitalist is aware, will continue to monitor.
[2023-12-19 14:00] VITALS: BP 124/70; PULSE 79; RESP 16; TEMP 36.3; O2SAT 97
--- NOTE | 2023-12-19 14:31 | PM.IMPN ---
Progress Note: A&P Assessment and Plan (1) Left lower lobe pulmonary nodule: Code(s): R91.1 - Solitary pulmonary nodule Status: Acute Assessment and Plan: - CT abd/pelvis: 1. 17 mm left lower lobe pulmonary nodule, consistent with primary bronchogenic carcinoma. 2. Bone lesions and liver mass(es), consistent with metastatic disease. CT-guided biopsy of a lytic lesion of left ilium is recommended. - oncology consulted- follow up outpt 12/19/23: Pts family currently reconsidering taking pt home to their care vs. placement. Awaiting results of bx. Will follow up with Oncology as outpt. Control pain as needed. (2) Bone lesion: Code(s): M89.9 - Disorder of bone, unspecified Status: Acute Assessment and Plan: - sp CT-guided biopsy of a lytic lesion of the left ilium ordered -lidoderm patch for pain - report will come back next week - pain control 12/19/23: See plan for Problem #1 (3) Hypercalcemia: Code(s): E83.52 - Hypercalcemia Status: Acute Assessment and Plan: - Ca 12.6 -> 11.7 - parathyroid hormone and ionized calcium pending - same treatment as below - IV fluids: 2L bolus, maintenance fluid at 75 mL/hour - suspect elevation due to new malignancy 12/19/23: Suspect that malignancy is the cause for elevation. Trend labs. Oncology follow up once family decides on discharge destination. (4) Multiple falls: Code(s): R29.6 - Repeated falls Status: Acute Assessment and Plan: - Head CT: 1. Normal aging brain with mild diffuse volume loss and mild scattered white matter hypoattenuation consistent with chronic small vessel ischemic disease. - MRI brain w/wo ordered given concern for metastasis to the brain due to progressive weakness /increase in number of falls - PT/OT eval and treat - pt is insisting on home discharge but very weak. -- will need PT/OT help with family teaching on transfer and very likely wheelchair for home 12/19/23: Generalized weakness present. Unable to adequately rehabilitate with PT/OT suspected due to pt's waxing and waning combativeness. Fall precautions. Safety concerns for her to be discharged to home. Needs placement. (5) Diabetes mellitus: Qualifiers: Diabetes mellitus type: type 2 Diabetes mellitus long term care pharmacist insulin use: without long term care pharmacist use Diabetes mellitus complication status: without complication Qualified Code(s): E11.9 - Type 2 diabetes mellitus without complications Code(s): E11.9 - Type 2 diabetes mellitus without complications Status: Acute Assessment and Plan: - hypoglycemia protocol - POC blood glucose ACHS - home medication: Hold metformin - correct regimen ordered - low dose TIDWM - A1C 7.1% on 08/23/2023 12/19/23: Continue current management. Fasting glucose today 161. No adjustments to POC. (6) HTN (hypertension): Qualifiers: Hypertension type: primary hypertension Qualified Code(s): I10 - Essential (primary) hypertension Code(s): I10 - Essential (primary) hypertension Status: Acute Assessment and Plan: - chronic, currently 144/58 - continue home medications: amlodipine 5 mg daily - monitor 12/19/23: Stable at 120s-150s/60s-70s. Continue to monitor and trend. Time Spent With Patient Time with patient: 25 - 35 minutes Subjective Date/time seen: 12/19/23 1100 Interval history: Attempted to evaluate this pt at the bedside today in interval assessment, but she was combative and would not cooperate for my exam, and was acutely confused. She accused me of being a [place] operative, pulled my stethoscope toward her and attempted to grab at my face. Pt was not able to be redirected. Her labs are stable today with a drop in Hgb noted but no lilliana bleeding. VSS. Her sister came to visit and discussed with me in the blue that this is what pt has been doing as of lately and she will wright
[2023-12-19] MEDS: ASPIRIN 81 MG ENTERIC TABLET PO (20:20)
[2023-12-19] MEDS: MAGNESIUM OXIDE 400 MG TABLET PO (20:20)
[2023-12-19 21:00] VITALS: BP 157/52; PULSE 89; RESP 18; TEMP 36.6; O2SAT 96
[2023-12-20] MEDS: ACETAMINOPHEN 325 MG TABLET 650 MG PO ×3 (04:10→14:39)
[2023-12-20] MEDS: BACLOFEN 10 MG TABLET PO ×2 (04:10→09:44)
[2023-12-20 05:15] VITALS: BP 150/55; PULSE 96; RESP 20; TEMP 37.1; O2SAT 95
[2023-12-20] MEDS: LEVOTHYROXINE SODIUM 75 MCG TABLET PO (05:38)
[2023-12-20 08:00] VITALS: PULSE 96; RESP 20; O2SAT 95
[2023-12-20 08:58] LABS: Basophils Absolute Auto 0.1 K/mm3 (0.0-0.1); Basophils Percent Auto 0.7 % (0.2-1.2); Eosinophils Absolute Auto 0.2 K/mm3 (0-0.3); Eosinophils Percent Auto 3.1 % (0-4.4); Hematocrit 36.9 % (37.0-47.0); Hemoglobin 11.6 g/dL (12.0-15.0); Immature Granulocyte Absolute 0.05 K/mm3 (0.00-0.031); Immature Granulocyte Percent A 0.7 % (0-0.5); Lymphocytes Absolute Auto 1.34 K/mm3 (0.9-3.2); Lymphocytes Percent Auto 19.1 % (18.3-44.2); Mean Corpuscular HGB Conc 31.4 g/dl (32-36); Mean Corpuscular Hemoglobin 29.9 pg (26-34); Mean Corpuscular Volume 95.1 fl (80-100); Mean Platelet Volume 11.2 fl (7.4-10.4); Monocytes Absolute Auto 0.5 K/mm3 (0.1-0.6); Monocytes Percent Auto 6.8 % (2.6-8.5); Neutrophils Absolute Auto 4.9 K/mm3 (1.3-6.7); Neutrophils Percent Auto 69.6 % (45.5-73.1); Platelet Count Result 235 k/mm3 (150-375); Red Blood Count 3.88 M/mm3 (4.2-5.4)
[2023-12-20 09:16] LABS: Alanine Aminotransferase 45 U/L (6-35); Albumin Level 3.7 g/dL (3.5-5.1); Alkaline Phosphatase 139 U/L (38-126); Anion Gap 8 mmol/L (4-12); Aspartate Amino Transferase 53 U/L (14-36); Bilirubin,Total 0.7 mg/dL (0.2-1.3); Blood Urea Nitrogen 10 mg/dL (7-17); Calcium 11.2 mg/dL (8.4-10.2); Carbon Dioxide 29 mmol/L (22-30); Chloride 101 mmol/L (98-107); Estimated Glomerular Filt Rate > 60; Glucose 118 mg/dL (65-110); Magnesium 2.1 mg/dL (1.6-2.3); Potassium 3.5 mmol/L (3.4-5.0); Sodium 138 mmol/L (137-145)
[2023-12-20] MEDS: amLODIPine BESYLATE 5 MG TABLET PO (09:44)
[2023-12-20] MEDS: CHOLECALCIFEROL 1,000 UNITS TABLET 2000 UNITS PO (09:44)
[2023-12-20] MEDS: FOLIC ACID 0.4 MG TABLET 0.8 MG PO (09:44)
[2023-12-20] MEDS: SIMVASTATIN 20 MG TABLET PO (09:44)
[2023-12-20] MEDS: POTASSIUM CHLORIDE 20 MEQ ER TABLET 40 MEQ PO (09:44)
[2023-12-20] MEDS: LIDOCAINE 5% PATCH 1 PATCH TRANSDERM ×2 (09:45)
--- NOTE | 2023-12-20 09:58 | PM.DS ---
DS: Admitting Diagnosis Discharge Date 12/20/2023 Admitting Diagnosis Progressive weakness Status post fall DS: Discharge Diagnosis Discharge Diagnosis (1) Left lower lobe pulmonary nodule: Code(s): R91.1 - Solitary pulmonary nodule Status: Acute Assessment and Plan: - CT abd/pelvis: 1. 17 mm left lower lobe pulmonary nodule, consistent with primary bronchogenic carcinoma. 2. Bone lesions and liver mass(es), consistent with metastatic disease. CT-guided biopsy of a lytic lesion of left ilium is recommended. - oncology consulted- follow up outpt 12/19/23: Pts family currently reconsidering taking pt home to their care vs. placement. Awaiting results of bx. Will follow up with Oncology as outpt. Control pain as needed. 12/20/2023: Date of discharge -patient's family will be taking patient home. Official results of biopsy are still pending. Patient will follow-up with Oncology as outpatient, Dr. Salcido. Patient is agreeable to this plan of care. This morning she is alert and oriented times. (2) Bone lesion: Code(s): M89.9 - Disorder of bone, unspecified Status: Acute Assessment and Plan: - sp CT-guided biopsy of a lytic lesion of the left ilium ordered -lidoderm patch for pain - report will come back next week - pain control 12/19/23: See plan for Problem #1 12/20/2023: Date of discharge -see problem 1. Plan. Patient will follow-up with Oncology in the outpatient setting. (3) Hypercalcemia: Code(s): E83.52 - Hypercalcemia Status: Acute Assessment and Plan: - Ca 12.6 -> 11.7 - parathyroid hormone and ionized calcium pending - same treatment as below - IV fluids: 2L bolus, maintenance fluid at 75 mL/hour - suspect elevation due to new malignancy 12/19/23: Suspect that malignancy is the cause for elevation. Trend labs. Oncology follow up once family decides on discharge destination. 12/20/2023: Day of discharge -again with persistently elevated calcium. Most likely secondary to her metastatic disease. Oncology will follow in the outpatient setting. (4) Multiple falls: Code(s): R29.6 - Repeated falls Status: Acute Assessment and Plan: - Head CT: 1. Normal aging brain with mild diffuse volume loss and mild scattered white matter hypoattenuation consistent with chronic small vessel ischemic disease. - MRI brain w/wo ordered given concern for metastasis to the brain due to progressive weakness /increase in number of falls - PT/OT eval and treat - pt is insisting on home discharge but very weak. -- will need PT/OT help with family teaching on transfer and very likely wheelchair for home 12/19/23: Generalized weakness present. Unable to adequately rehabilitate with PT/OT suspected due to pt's waxing and waning combativeness. Fall precautions. Safety concerns for her to be discharged to home. Needs placement. 12/20/2023: Date of discharge -patient continues with generalized weakness, however she does not wish to go to rehab. She states she will be staying with her daughter and son-in-law who are agreeable to helping her and that they have all equipment necessary to assist her. Patient remains a falls safety risk that family willing to take this on at this time. (5) Diabetes mellitus: Qualifiers: Diabetes mellitus type: type 2 Diabetes mellitus terminal system operator insulin use: without terminal system operator use Diabetes mellitus complication status: without complication Qualified Code(s): E11.9 - Type 2 diabetes mellitus without complications Code(s): E11.9 - Type 2 diabetes mellitus without complications Status: Acute Assessment and Plan: - hypoglycemia protocol - POC blood glucose ACHS - home medication: Hold metformin - correct regimen ordered - low dose TIDWM - A1C 7.1% on 08/23/2023 12/19/23: Continue current management. Fasting glucose today 161. No adjustments to POC. 12/20/2023: D
[2023-12-27 15:04] LABS: Parathyroid Hormone Related Pr 5 pg/mL (11-20)
== END 2023-12-20 15:12 | disposition home health service (06) ==
LOC: ANHED 11:59 → ANH3MEDSUR 17:42
PROVIDERS: Nurse Practitioner; Admitting Provider Family Medicine; Emergency Provider Student in an Organized Health Care Education/Training Program; PCP Nurse Practitioner; Visit Provider Nurse Practitioner Adult Health
DX: C79.51 Secondary malignant neoplasm of bone (principal); R91.1 Solitary pulmonary nodule; T50.905A Adverse effect of unspecified drugs, medicaments and biological substances, initial encounter; R53.1 Weakness; R29.6 Repeated falls; E83.52 Hypercalcemia; M25.511 Pain in right shoulder; E44.0 Moderate protein-calorie malnutrition; Z68.21 Body mass index [BMI] 21.0-21.9, adult; I10 Essential (primary) hypertension; E11.9 Type 2 diabetes mellitus without complications; E78.5 Hyperlipidemia, unspecified; E03.9 Hypothyroidism, unspecified; J44.9 Chronic obstructive pulmonary disease, unspecified; M19.90 Unspecified osteoarthritis, unspecified site; F41.9 Anxiety disorder, unspecified; Z90.49 Acquired absence of other specified parts of digestive tract; Z79.82 Long term (current) use of aspirin; Z79.84 Long term (current) use of oral hypoglycemic drugs
CPT/HCPCS: 20220; 36415; 70450; 70553; 71045; 71046; 73030; 73502; 73552; 74176; 77012; 80053; 81001; 82310; 82330; 82550; 83519; 83690; 83735; 84100; 85025; 86850; 86900; 86901; 87086; 88307; 88311; 88342; 93005; 96361; 96365; 96374; 96375; 96376; 97110; 97161; 97165; 97530; 97535; 99285; A9270; A9577; G0378; J0696; J1170; J2270; J2405; J7030

== ENCOUNTER 2023-12-20 23:42 | Emergency (ER) | payer OTHER, SELFPAY ==
--- NOTE | ~2023-12-20 | XR_ITS ---
AP view of the pelvis and AP and lateral views of the right hip Clinical history: Pain Findings: There is an oblique fracture of the proximal right femoral shaft with overriding/displaceme nt significant angulation. Bilateral hip and SI joint spaces are preserved. Soft tissues are unremark able. Impression: Acute, oblique fracture of the proximal right femoral shaft, as detailed above. Reviewed, dictated and finalized at location . Impression: Acute, oblique fracture of the proximal right femoral shaft, as detailed above.
--- NOTE | ~2023-12-20 | XR_ITS ---
Portable chest x-ray Comparison: 12/14/2023 Clinical History: Shortness of breath Findings: Probable small left pleural effusion present. There is mild bibasilar haziness. Cardiomed iastinal silhouette is stable. Bones and soft tissues are unremarkable. Impression: Minimal bibasilar pulmonary edema and probable small left pleural effusion. Reviewed, dictated and finalized at [facility]. Impression: Minimal bibasilar pulmonary edema and probable small left pleural effusion.
--- NOTE | ~2023-12-20 | XR_ITS ---
AP and lateral views of the right femur Clinical History: Pain Findings: There is an oblique fracture of the proximal right femoral shaft, with marked angulation an d significant displacement/overriding. Visualized joint spaces are grossly preserved. Soft tissues ar e unremarkable. Impression: Oblique fracture the proximal femoral shaft, with marked angulation significant displacement/overridi ng. Reviewed, dictated and finalized at location . Impression: Oblique fracture the proximal femoral shaft, with marked angulation significant displacement/overriding.
[2023-12-20 23:46] VITALS: BP 168/77; PULSE 115; RESP 29; TEMP 36.6; O2SAT 88
[2023-12-20 23:51] VITALS: BP 168/77; PULSE 115; RESP 19; TEMP 36.6; O2SAT 100
[2023-12-20 23:55] VITALS: O2SAT 98
[2023-12-21] VITALS (7 sets, daily range): BP systolic 140–186; BP diastolic 79–85; PULSE 69–119; RESP 17–26; TEMP 36.8; O2SAT 98–99
--- NOTE | 2023-12-21 00:44 | ED.GENADULT ---
HPI - General Adult General Chief complaint: Extremity Injury, Lower Stated complaint: femur fx Time Seen by Provider: 12/21/23 00:16 History of Present Illness HPI narrative: Patient is a 78-year-old female who presents to the emergency department this evening due to concern for right femur fracture. Patient was discharged from our facility this morning after being admitted with diagnosis of hypercalcemia of malignancy. Patient was found to have multiple bone metastasis and underwent a right hip bone biopsy, results are pending. Son who is present at bedside is a group fitness instructor and states that they are currently in the process of getting scheduled for a PET scan for further evaluation but believed that the primary malignancy is lung cancer. Some states that he was helping her off of the bedside commode and immediately heard a snap. Patient does have a deformity to her right hip/femur. No additional injuries or concerns at this time Related Data Home Medications Medication Instructions Recorded Confirmed folic acid 800 mcg tablet 0.8 mg PO DAILY 03/14/19 12/14/23 magnesium 200 mg tablet 400 mg PO QHS 03/14/19 12/14/23 aspirin 81 mg tablet,delayed 81 mg PO HS 06/05/19 12/14/23 release (Adult Low Dose Aspirin) cholecalciferol (vitamin D3) 50 50 mcg PO QAM 06/05/19 12/14/23 mcg (2,000 unit) capsule amlodipine 5 mg tablet 5 mg PO DAILY 12/14/23 12/14/23 levothyroxine 75 mcg tablet 75 mcg PO DAILY 12/14/23 12/14/23 simvastatin 20 mg tablet 20 mg PO DAILY 12/14/23 12/14/23 Allergies Allergy/AdvReac Type Severity Reaction Status Date / Time oxycodone AdvReac Severe Hallucinati Verified 12/05/23 08:48 on amoxicillin AdvReac Intermediate vomiting Verified 12/05/23 08:48 and diarrhea lovastatin AdvReac Unknown Joint Pain Verified 12/05/23 08:48 Sulfa (Sulfonamide AdvReac Unknown N/V Verified 12/05/23 08:48 Antibiotics) Review of Systems Review of Systems: All systems are reviewed and are negative unless stated otherwise in the HPI. REPLACED BY [facility] Past Medical History Medical History Anxiety Machias-Walker grade 3 rectocele COPD (chronic obstructive pulmonary disease) Diabetes mellitus Elevated lipids Encounter for fitting and adjustment of pessary Endometriosis Fibroadenoma of left breast HTN (hypertension) Hyperlipidemia Hypothyroidism Incisional hernia Psoriasis Rectal prolapse Surgical History Surgical History H/O abdominal hysterectomy H/O bladder repair surgery H/O colonoscopy 2012 H/O of rectopexy History of back surgery History of bilateral tubal ligation History of breast lump/mass excision History of incisional hernia repair s/p f/u incisional hernia repair x2, Da Melody assisted on 11/23. S/P small bowel resection Family History Family History Mother Family history of arthritis Family history of heart disease in male family member before age 55 Family history of malignant neoplasm Patient's mother is Father Family history of diabetes mellitus in first degree relative Family history of emphysema Patient's father is Diabetes mellitus Grandparent Family history of coronary artery disease Sibling Family history of heart disease in male family member before age 55 Patient's sister is Carcinoma of colon Social History Social History Smoking packs per day: 0.5 Smoking cigarettes per day: 10.0 Years smoked: 40 Smoking pack-years: 20.00 Smoking status: Never smoker Second hand tobacco smoke exposure: No Alcohol intake: never Substance use: never Substance use type: does not use Do You Feel Safe in your Home?: Yes Lack of Transportation: No Lack of Food: Never True Current Housing: I Have Housing Concerned
[2023-12-21] MEDS: ONDANSETRON INJ 4 MG/2 ML VIAL IV PUSH (00:53)
[2023-12-21] MEDS: MORPHINE SULFATE (*CRX) 2 MG/ML INJ IV PUSH ×3 (00:53→05:26)
--- NOTE | 2023-12-21 02:00 | PC.NURSE ---
jacinto morphine 2mg dr hassan
--- NOTE | 2023-12-21 02:24 | PC.NURSE ---
vrbo lactic acid ok to send
[2023-12-21 02:30] LABS: Basophils Percent Auto 0.2 % (0.2-1.2); Eosinophils Absolute Auto 0.1 K/mm3 (0-0.3); Eosinophils Percent Auto 0.6 % (0-4.4); Hematocrit 33.3 % (37.0-47.0); Hemoglobin 10.9 g/dL (12.0-15.0); Immature Granulocyte Absolute 0.07 K/mm3 (0.00-0.031); Immature Granulocyte Percent A 0.7 % (0-0.5); Lymphocytes Absolute Auto 0.97 K/mm3 (0.9-3.2); Lymphocytes Percent Auto 9.4 % (18.3-44.2); Mean Corpuscular HGB Conc 32.7 g/dl (32-36); Mean Corpuscular Hemoglobin 30.4 pg (26-34); Mean Platelet Volume 10.7 fl (7.4-10.4); Monocytes Absolute Auto 0.8 K/mm3 (0.1-0.6); Monocytes Percent Auto 7.7 % (2.6-8.5); Neutrophils Absolute Auto 8.4 K/mm3 (1.3-6.7); Neutrophils Percent Auto 81.4 % (45.5-73.1); Platelet Count Result 227 k/mm3 (150-375); Red Blood Count 3.58 M/mm3 (4.2-5.4); White Blood Count 10.3 K/mm3 (4.5-10.0)
[2023-12-21 02:42] LABS: Alanine Aminotransferase 40 U/L (6-35); Albumin Level 3.6 g/dL (3.5-5.1); Alkaline Phosphatase 146 U/L (38-126); Anion Gap 9 mmol/L (4-12); Aspartate Amino Transferase 45 U/L (14-36); Bilirubin,Total 0.9 mg/dL (0.2-1.3); Blood Urea Nitrogen 12 mg/dL (7-17); Calcium 11.4 mg/dL (8.4-10.2); Carbon Dioxide 27 mmol/L (22-30); Chloride 99 mmol/L (98-107); Estimated Glomerular Filt Rate > 60; Glucose 171 mg/dL (65-110); Potassium 3.9 mmol/L (3.4-5.0); Sodium 135 mmol/L (137-145)
--- NOTE | 2023-12-21 05:25 | PC.NURSE ---
jacinto hassan morphine 2mg stat x 1 - for movement off our stretcher onto [facility] stretcher
== END 2023-12-21 06:12 | disposition short-term general hospital (02) ==
PROVIDERS: Emergency Provider Emergency Medicine; PCP Nurse Practitioner
DX: M84.451A Pathological fracture, right femur, initial encounter for fracture (principal); C79.51 Secondary malignant neoplasm of bone; I10 Essential (primary) hypertension; J44.9 Chronic obstructive pulmonary disease, unspecified; E11.9 Type 2 diabetes mellitus without complications; E78.5 Hyperlipidemia, unspecified; E03.9 Hypothyroidism, unspecified; L40.9 Psoriasis, unspecified; F17.210 Nicotine dependence, cigarettes, uncomplicated; Z90.710 Acquired absence of both cervix and uterus; Z90.49 Acquired absence of other specified parts of digestive tract; Z79.82 Long term (current) use of aspirin; Z79.899 Other long term (current) drug therapy; Z79.84 Long term (current) use of oral hypoglycemic drugs
CPT/HCPCS: 36415; 71045; 73502; 73552; 80053; 85025; 86850; 86900; 86901; 96374; 96375; 96376; 99285; J2270; J2405